=== PATIENT | female | born 1970 | race Caucasian/White ===

== ENCOUNTER 2019-12-16 11:52 | Observation (INO) | payer BC ==
--- OUTSIDE RECORDS SUMMARY | 2019-12-16 11:54 | XMS REPORT | Summary of Care ---
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 [facility] Malissa Palm MD [id number] [place] [address] Mild dietary indigestion (Primary Dx); Professional Office 2, Adc Lab Gastroesophageal reflux disease, esophag itis presence not specified Building Phlebotomy Lab Professional Office Building [address] [facility] , [address] [place] [address] Allergies No Known Allergiesdocumented as of this encounter (statuses as of 11/02/2019) Medications Medication Sig Dispensed Refills Start Date End Date Status VICTOZA 3-JOSE 0.6 inject 1.8 mg 0 09/22/2015 Active mg/0.1 mL (18 mg/3 mL) under the skin injection daily. temazepam (RESTORIL) 15 Take 15 mg by 0 09/20/2015 Active mg capsule mouth at bedtime. atorvastatin (LIPITOR) Take 10 mg by 0 09/14/2015 Active 10 mg tablet mouth every evening. paroxetine (PAXIL) 40 Take 40 mg by 0 09/11/2015 Active mg tablet mouth daily. DEXILANT 60 mg capsule Take 60 mg by 0 11/06/2015 Active mouth daily. montelukast 10 mg Take 10 mg by 0 Active tablet mouth daily. insulin lispro, human, inject under the 0 Active (HUMALOG) 100 unit/mL skin 3 (three) injectionIndications: times daily Via insulin pump before meals. Indications: Via insulin pump estradiol 1 mg tablet Take 1 mg by 0 Active mouth daily. empagliflozin Take 10 mg by 0 Ac tive (JARDIANCE) 10 mg Tab mouth daily. ranitidine (ZANTAC 75) Take 75 mg by 0 Active 75 mg tablet mouth daily. diazePAM (VALIUM) 5 mg Take 1 tablet by 8 tablet 0 06/25/2018 Active tabletIndications: mouth 3 (three) Torticollis times daily as needed for Muscle Spasms. documented as of this encounter (statuses as of 11/02/2019) Active Problems Problem Noted Date Left ankle pain 10/15/2015 Right knee pain 10/15/2015 documented as of this encounter (statuses as of 11/02/2019) Social History Tobacco Use Types Packs/Day Years Used Date Former Smoker Quit: 10/05/19 03 Smokeless Tobacco: Never Used Alcohol Use Drinks/Week oz/Week Comments Yes 0 Standard drinks or equivalent 0.0 Social Drinker Sex Assigned at Date Recorded Not on file COVID-19 Exposure Response Date Recorded In the last month, have you been in contact with No / Unsure 11/02/2019 3:27 PM CDT someone who was confirmed or suspected to have Coronavirus / COVID-19? documented as of this encounter Last Filed Vital Signs Not on filedocumented in this encounter Nursing Notes Dilia Carmona - 11/02/2019 4:15 PM CDT Venipuncture collection performed by clean technique on the right anticubitus. Total of 1 attempts were made. Slight pressure and a bandage/dressing were applied to the site(s). The patient experiencedno complications. The following specimens were processed according to instructions and sent to [facility] laboratories per lab order on 11/02/19: LT BLUE SST 3 RED LAV 1 PPT DK GREEN (LiHep) DK GREEN (SodH) HANDY DK BLUE (K2) DK BLUE (S) ACD Blood Culture NIPT/NTD documented in this encounter Plan of Treatment Name Type Priority Associated Diagnoses Order S chedule CBC WITH DIFF LAB Routine Mild dietary ind igestion Expected: 11/02/2019, Gastroesophageal reflux Expi res: 11/01/2020 disease, esophagitis presence not specified HEPATIC FUNCTION PANEL LAB Routine Mild diet campos indigestion Expected: 11/02/2019, ([id number]) (ALB,T.PRO,BILI Gastroesophageal reflux Expires: 11/01/2020 T,BU/BC,ALT,AST,ALK disease, esophagitis PHOS) presence not specified AMYLASE LAB Routine Mild dietary ind igestion Expected: 11/02/2019, Gastroesophageal reflux Expi res: 11/01/2020 disease, esophagitis presence not specified LIPASE LAB Routine Mild dietary ind igestion Expected: 11/02/2019, Gastroesophageal reflux Expi res: 11/01/2020 disease, esophagitis presence not specified BASIC METABOLIC PANEL LAB Routine Mild dieta ry indigestion Expected: 11/02/2019, (NA, K, CL, CO2, Gastroesophageal reflux Expires: 11/01/2020 GLUCOSE, BUN, disease, esophagitis CREATININE, CA) presence not specified C-REACTIVE PROTEIN LAB Routine Mild dietary indigestion Expected: 11/02/2019, Gastroesophageal reflux Expi res: 11/01/2020 disease, esophagitis presence not specified CELIAC REFLEXIVE PANEL LAB Routine Mild diet campos indigestion Expected: 11/02/2019, Gastroesophageal reflux Expi res: 11/01/2020 disease, esophagitis presence not specified Health Maintenance Due Date Last Done Comments Depression Screening 1982 DTaP,Tdap,and Td Vaccines (1 - 1989 Tdap) PAP SMEAR 1991 Breast Cancer Screening 2010 (MAMMOGRAM) INFLUENZA VACCINE (#1) 2019 Colorectal Cancer Screening 2020 PNEUMOCOCCAL 0-64 YEARS COMBINED Aged Out No longer eligible based on SERIES patient's age to complete this topic documented as of this encounter Implants Implanted Type Area Account Development Representative Device Shelf Model / Identifier Expiration Date Ser ial / Lot Acry Sof Iq Toric Lens LENS Right: David 020 [id number] / Implanted: Qty: 1 on 01/05/2017 by Cr Ohara MD at [facility] 1 [id number] / [id number] Acry Sof Iq Toric Lens LENS Left: Eye David 022 [id number] / Implanted: Qty: 1 on 01/28/2017 by Cr Ohara MD at [facility] 1 [id number] / [id number] documented as of this encounter Results Not on filedocumented in this encounter Visit Diagnoses Diagnosis Mild dietary indigestion - Primary Dyspepsia and other specified disorders of function of stomach Gastroesophageal reflux disease, esophag itis presence not specified documented in this encounter Insurance Payer Benefit Plan Subscriber ID Effective Dates Phone Address Type / Group [facility] [id number] 2016-[place] [phone] [address] PPO/POS [place] SELECT t [id number] [place] [address] documented as of this encounter
--- OUTSIDE RECORDS SUMMARY | 2019-12-16 11:54 | XMS REPORT | Summary of Care ---
:1970 Author Organization [facility] Address [address] [place] [address] Care Team Providers Name Role Phone Keven Santana Primary Care Provider Reason for Visit Reason Comments LAB WORK Auth/Cert Status Reason Specialty Diagnoses / Referred By Referred To Procedures Contact Contact Clinical Medical Diagnoses PRE OP [facility] Lab Laboratory Procedures COVID-19 (ID NOW RAPID TESTING) COVID-19 (ID NOW RAPID TESTING) [[id number]] [address] [place] [address] Encounter Details Date Type Department Care Team Description 11/28/2019 Laboratory Only [facility] Ailyn Palm MD [id number] [place] [address] Pre-operative Phlebotomy Only, [facility] Test clearance (Primary Lab-[place] Dx) [address] [place] [address] Allergies No Known Allergiesdocumented as of this encounter (statuses as of 11/28/2019) Medications Medication Sig Dispensed Refills Start Date End Date Status VICTOZA 3-JOSE 0.6 inject 1.8 mg 0 09/22/2015 Active mg/0.1 mL (18 mg/3 mL) under the skin injection daily. temazepam (RESTORIL) 15 Take 30 mg by 0 09/20/2015 Active mg capsule [...] times daily Via insulin pump before meals. Average 20 units a day on insulin pump Indications: Via insulin pump estradiol 1 mg [...] times daily as needed for Muscle Spasms. esomeprazole (NEXIUM) Take 20 mg by 0 Active 20 mg capsule mouth daily before a meal. documented as of this encounter (statuses as of 11/28/2019) Active Problems Problem Noted Date Left ankle pain 10/15/2015 Right knee pain 10/15/2015 documented as of this encounter (statuses as of 11/28/2019) Social History Tobacco Use Types Packs/Day Years Used Date Former Smoker Quit: 10/05/19 03 Smokeless Tobacco: Never Used Alcohol Use Drinks/Week oz/Week Comments Yes 0 Standard drinks or equivalent 0.0 Social Drinker Sex Assigned at Date Recorded Not on file COVID-19 Exposure Response Date Recorded In the last month, have you been in contact with No / Unsure 11/28/2019 2:11 PM CDT someone who was confirmed or suspected to have Coronavirus / COVID-19? documented as of this encounter Last Filed Vital Signs Not on filedocumented in this encounter Plan of Treatment Date Type Specialty Care Team Description 11/30/2019 Hospital Encounter Surgery Lara Palm MD [id number] [place] [address] 11/30/2019 Anesthesia Event Surgery Keven Moyer, [place] [address] [address] 11/30/2019 Surgery Surgery Charafeddine, ESOPHAGOGASTRO DUODENOSCOPY aLra Collazo MD [id number] [place] [address] Name Type Priority Associated Diagnoses Date/Ti me COVID-19 (ID NOW RAPID LAB Routine Pre-operative rosmery jermaine 11/28/2019 3:30 PM CDT TESTING) Name Type Priority Associated Diagnoses Order S chedule COVID-19 (ID NOW RAPID LAB Routine Pre-operative rosmery jermaine Expected: 11/28/2019, TESTING) Expires: 2020 Health Maintenance Due Date Last Done Comments Depression Screening 1982 DTaP,Tdap,and Td Vaccines (1 - 1989 Tdap) PAP SMEAR 1991 Breast Cancer Screening 2010 (MAMMOGRAM) INFLUENZA VACCINE (#1) 2019 Colorectal Cancer Screening 2020 PNEUMOCOCCAL 0-64 YEARS COMBINED Aged Out No longer eligible based on SERIES patient's age to complete this topic documented as of this encounter Implants Implanted Type Area Hospice Social Worker Device Shelf Model / Identifier Expiration Date Ser ial / Lot Acry Sof Iq Toric Lens LENS Right: David 020 [id number] / Implanted: Qty: 1 on 01/05/2017 by Cr Ohara MD at [facility] 1 [id number] / [id number] Acry Sof Iq Toric Lens LENS Left: Eye David 022 [id number] / Implanted: Qty: 1 on 01/28/2017 by Cr Ohara MD at [facility] 1 [id number] / [id number] documented as of this encounter Results Not on filedocumented in this encounter Visit Diagnoses Diagnosis Pre-operative clearance - Primary Preoperative examination, unspecified Dysphagia, oropharyngeal phase documented in this encounter Additional Health Concerns Infection Onset Date Last Indicated Resolved Time COVID-19 Rule Out 11/28/2019 11/28/2019 documented as of this encounter Insurance Payer Benefit Plan Subscriber ID Effective Dates Phone Address Type / Group [facility] [id number] 2016-[place] [phone] [address] PPO/POS [place] SELECT t 7 [id number] [place] [address] documented as of this encounter
--- OUTSIDE RECORDS SUMMARY | 2019-12-16 11:54 | XMS REPORT | Summary of Care ---
:1970 Author Organization [facility] Address [address] [place] [address] Care Team Providers Name Role Phone Julyhakeem Keven Bruno Primary Care Provider Encounter Details Date Type Department Care Team Description 11/02/2019 Orders Only [facility] Doctor Unassigned, No [address] [facility] [place] [address] [address] [place] [address] Allergies No Known Allergiesdocumented as of this encounter (statuses as of 11/07/2019) Medications Medication Sig Dispensed Refills Start Date [...] as of this encounter (statuses as of 11/07/2019) Active Problems Problem Noted Date Left ankle pain 10/15/2015 Right knee pain 10/15/2015 documented as of this encounter (statuses as of 11/07/2019) Social History Tobacco Use Types Packs/Day Years [...] filedocumented in this encounter Plan of Treatment Health Maintenance Due Date Last Done Comments Depression Screening 1982 DTaP,Tdap,and Td Vaccines (1 - 1989 Tdap) PAP SMEAR 1991 Breast Cancer Screening 2010 (MAMMOGRAM) INFLUENZA VACCINE (#1) 2019 Colorectal Cancer Screening 2020 PNEUMOCOCCAL 0-64 YEARS COMBINED Aged Out No longer eligible based on SERIES patient's age to complete this topic documented as of this encounter Implants Implanted Type Area Cloth Carrier Device Shelf Model / Identifier Expiration Date Ser ial / Lot Acry Sof Iq Toric Lens LENS Right: David 020 [id number] / Implanted: Qty: 1 on 01/05/2017 by Cr Ohara MD at [facility] 1 [id number] / [id number] Acry Sof Iq Toric Lens LENS Left: Eye David 022 [id number] / Implanted: Qty: 1 on 01/28/2017 by Cr Ohara MD at [facility] 1 [id number] / [id number] documented as of this encounter Procedures Procedure Name Priority Date/Time Associated Diagnosis Comme nts PHYSICIAN ORDERS Routine 11/02/2019 12:01 AM CDT documented in this encounter Results Not on filedocumented in this encounter Insurance Payer Benefit Plan / Subscriber ID Effective Phone Address T e Group Dates [facility] [id number] 2016-Pr PPO/PO [facility] [id number] 2016-Pres [phone] [address] PPO/POS [employer] ent [id number] [place] [address] documented as of this encounter
--- OUTSIDE RECORDS SUMMARY | 2019-12-16 11:54 | XMS REPORT | Continuity of Care Document ---
:1970 Author Organization [facility] t Address [address] [place] [address] Care Team Providers Name Role Phone Lara Palm MD Attending Clinician Doctor Unassigned, Name Attending Clinician Unavailable Only, Test Attending Clinician Unavailable 2, Lab Attending Clinician Unavailable Vale Palm MD Admitting Clinician Payers Payer Name Policy Type Policy Number Effective Date Expiration Date S ource Problems This patient has no known problems. Allergies, Adverse Reactions, Alerts Allergy Allergy Status Severity Reaction(s) Onset Inactive Treating Comm ents Source Name Type Date Date Clinician nick DA Active RI [facility] 03-01 [place] 00:00: Orthope 00 dic Hosp[facility] l Medications This patient has no known medications. Procedures This patient has no known procedures. Encounters Start End Encounter Admission Attending Care Care Encounter Source Date/Time Date/Time Type Type Clinicians Facility Department ID 2019-11-30 2019-11-30 [facility] [id number] 07:16:00 08:55:00 Encounter Lara diamond [id number] [place] [id number] Surgical [id number] [place] 07 2019-11-30 2019-11-30 Orders Doctor CIERRA [id number] 00:00:00 00:00:00 Only Unassigned, JUNAITA [id number] [place] [facility] [id number] 2019-11-28 2019-11-28 Laboratory Only, [facility] [place] [id number] 15:23:27 15:38:27 Only Test Rachana [id number] [place] [id number] [place] [id number] 2019-11-02 2019-11-02 Engraving Plate Maker 2, [facility] [id number] 15:28:24 15:43:24 Visit Rachana [id number] [place] [id number] [facility] [id number] [address] 2019-11-02 2019-11-02 Orders Doctor CIERRA [id number] 00:00:00 00:00:00 Only Unassigned, JUANITA [id number] [place] [facility] [id number] Results Test Description Test Time Test Comments Results Result Comments Source GLUBED 2018-10-25 09:52:00 Test Item Value Reference Range Interpretation Comme nts GLUBED (test code = GLUBED) 171 mg/dL 60-125 H [id number] 09:52:00 Test Item Value Reference Range Interpretation Comments GLUBED (test code = GLUBED) 94 mg/dL 60-125 N [id number] 08:35:00 Test Item Value Reference Range Interpretation Comments GLUBED (test code = GLUBED) 107 mg/dL 60-125 N [id number] 07:50:00 Test Item Value Reference Range Interpretation Comments GLUBED (test code = GLUBED) 116 mg/dL 60-125 N BASIC METABOLIC [id number] 17:41:00 Test Item Value Reference Range Interpretation Comments SODIUM (test code = 143 mmol/L 136-145 N NA) POTASSIUM (test code = 3.8 mmol/L 3.5-5.1 N K) CHLORIDE (test code = 105.0 mmol/L 98-107 N CL) CARBON DIOXIDE (test 28.8 mmol/L 21-32 N code = CO2) GLUCOSE (test code = 82 mg/dL 70-110 N GLU) BLOOD UREA NITROGEN 9 mg/dL 7-18 N (test code = BUN) GLOMERULAR FILTRATION 141.4 >60 Unit o f measure: RATE (test code = GFR) mL/mi n/1.73 [id number] Range:Healthy Adults >90 mL/min/1.73 m2 For Chronic Kidney Disease: St age II Mild Decrease in GFR 60-90 St age III Moderate Decrease in GFR 30-59 Stage IV Severe Decre ase in GFR 15- 29 Stage V Kidney Failure <15 CREATININE (test code 0.47 mg/dL 0.55-1.30 L = CREAT) CALCIUM (test code = 9.0 mg/dL 8.2-10.1 N CA) HGB [id number] 17:16:00 Test Item Value Reference Range Interpretation Comments HEMOGLOBIN (test code = HGB) 13.3 g/dL 12-16 N HEMATOCRIT (test code = HCT) 39.6 % 37-47 N
--- OUTSIDE RECORDS SUMMARY | 2019-12-16 11:55 | XMS REPORT | Summary of Care ---
:1970 Author Organization [facility] - Health Address [address] [place] [id number] Care Team Providers Name Role Phone Keven Santana Primary Care Provider Reason for Visit Auth/Cert Status Reason Specialty Diagnoses / Procedures Referred By Laxmi rapp To Contact Contact Surgery Diagnoses Dysphagia, oropharyngeal phase Functional dyspepsia Dysphagia, oropharyngeal phase [R13.12] K30 (ICD-10-CM) - Functional dyspepsia Adc Procedures [facility] CODING HELP DC ESOPHAGOGASTRODUODENOSCOPY TRANSORAL DIAGNOSTIC ESOPHAGOGASTRODUODENOSCOPY 26714 - DC ESOPHAGOGASTRODUODENOSCOPY TRANSORAL DIAGNOSTIC Pre/Pacu/Post [address] [place] [id number] Encounter Details Date Type Department Care Team Description 11/30/2019 Hospital Encounter [facility] Lara Palm MD [address] [place] [address] Dr duncan [address] [place] [address] [id number] [place] [phone] Allergies No Known Allergiesdocumented as of this encounter (statuses as of 11/30/2019) Medications Medication Sig Dispensed Refills Start Date [...] as of this encounter (statuses as of 11/30/2019) Active Problems Problem Noted Date Left ankle pain 10/15/2015 Right knee pain 10/15/2015 documented as of this encounter (statuses as of 11/30/2019) Social History Tobacco Use Types Packs/Day Years [...] of this encounter Last Filed Vital Signs Vital Sign Reading Time Taken Comments Blood Pressure 104/69 11/30/2019 8:55 AM CDT Pulse 72 11/30/2019 8:55 AM CDT Temperature 36.5 C (97.7 F) 11/30/2019 7:25 AM CDT Respiratory Rate 18 11/30/2019 8:55 AM CDT Oxygen Saturation 98% 11/30/2019 8:55 AM CDT Inhaled Oxygen Concentration - - Weight 79.4 kg (175 lb) 11/28/2019 2:00 PM CDT Height 160 cm (5' 3") 11/28/2019 2:00 PM CDT Body Mass Index 31 11/28/2019 2:00 PM CDT documented in this encounter Discharge Instructions Bakari Marte RN - 11/30/2019 General Discharge Instructions Procedure: EGD The medication you were given for the procedure may make you dizzy or sleepy. Do not drive, operate machinery or walk for long distances in the heat for at least 12 hours. Many patients feel very tired following these procedures and need to rest for several hours. The procedure may cause mild discomfort in the abdominal area, but the pain should disappear within several hours. Notify your physician if you have pain or tenderness for more than six hours or ifyou notice an increase in abdominal size. Advance your diet: You may resume a normal diet but first start with a light meal that is not greasy or fatty. If you are passing gas and this light meal does not bother your stomach you may continue with a normal diet for the next meal. Resume your home medications. The arm vein where medication was given may be tender. Apply a warm compress. If the pain persists for more than 12 hours, call your doctor. You will probably belch or pass gas during the first few hours after the exam. Light exercise like walking may help relieve bloating or gas pains. Avoid extreme heat when you exercise. If you had a polypectomy or a biopsy, you may notice a small amount of red blood coming from the rectum. You may also have a small amount of blood in your first bowel movement. If bleeding increases, call your doctor. If you had a polypectomy, do not take non-steroidal antiinflammatory medications containing Ibuprofen (such as Nuprin, Motrin, Advil) or medications with Aspirin (such as Bufferin) for 7 days, unless your doctor tells you otherwise. For minor pains, you may use medications that do not contain aspirin or ibuprofen (such as Tylenol or Datril). Special Instructions: Although these symptoms may not be related to your procedure, call your doctor immediately if you- Become short of breath Get dizzy Have a fever Experience chest pain Have rapid or irregular heart rate If you had biopsies your physician will call you with the results in approximately one week and advise you of when to follow-up. Contact Information Dr Palm [phone] After Hours (Non-Urgent Concerns): [facility] Access Line [phone] High Fiber Diet (25-30 grams/ day) FRUIT AMOUNT FIBER (gms) VEGETABLES AMOUNT FIBER (gms) Apple with skin 1 medium 5.00 Avocado 1 medium 11.84 Apricot 3 medium 0.98 Beets, cooked 1 cup 2.85 Apricots, dried 5 pieces 2.89 Beet greens 1 cup 4.20 Banana 1 medium 3.92 Bok [place], cooked 1 cup 2.76 Blueberries 1 cup 4.18 Broccoli, cooked 1 cup 4.5 Cantaloupe, cubes 1 cup 1.28 Brussel Sprouts 1 cup 2.84 Figs, dried 2 medium 3.74 Cabbage, cooked 1 cup 4.20 Grapefruit medium 6.12 Carrot 1 medium 2.00 Richardson, navel 1 medium 3.40 Carrots, cooked 1 cup 5.22 [place] 1 medium 2.00 Cauliflower, cooked 1 cup 3.43 Peaches, dried 3 pieces 3.18 Clif Slaw 1 cup 4.00 Pear 1 medium 5.08 [place], sweet 1 cup 4.66 [place] 1 medium 1.00 Green beans 1cup 3.95 Raisins 1.5 oz box 1.60 Celery 1 stalk 1.02 Raspberries 1 cup 8.34 Kale, cooked 1 cup 7.20 Strawberries 1 cup 3.98 Onions, raw 1 cup 2.88 Peas, cooked 1 cup 8.84 CEREAL, GRAINS, PASTA AMOUNT FIBER (gms) Peppers, cooked 1 cup 2.62 Bran Cereal 1 cup 19.94 Pop corn, air popped 3 cups 3.60 Bread, whole wheat 1 slice 2.00 Potato, baked w/ skin 1 medium 4.80 Oats, rolled dry 1 cup 12.00 Spinach, cooked 1 cup 4.32 Pasta, whole wheat 1 cup 6.34 Summer squash 1 cup 2.52 Rice, dry brown 1 cup 7.98 Sweet Potato, cooked 1 cup 5.94 Swazi Chard, cooked 1 cup 3.68 BEANS, NUTS, SEEDS AMOUNT FIBER (gms) Tomato 1 medium 1.00 Almonds 1 oz 4.22 Winter Squash 1 cup 5.74 Black Beans, cooked 1 cup 14.92 Zucchini, cooked 1 cup 2.63 Cashews 1 oz 1.00 Flax Seeds 3 tbs 6.97 Garbanzo beans, cooked 1 cup 5.80 Kidney beans, cooked 1 cup 13.33 Lentils, red cooked 1 cup 15.64 Urrutia beans, cooked 1 cup 13.16 Peanuts 1 oz 2.30 Pistachio nuts 1 oz 3.10 Pumpkin seeds cup 4.12 Soybeans, cooked 1 cup 7.62 [place] seeds cup 3.00 Walnuts 1 oz 3.08 General Surgical Discharge Instructions: ? The medication that was used will be acting in your system for the next 24 hours, so you might feel a little drowsy, with impaired judgment and/ or motor function. This feeling should wear off. Because the medication is still in your system for the next 24 hours you SHOULD NOT: o Drive a car, operate machinery or power tools. o Drink any alcoholic beverages. o Make any important decisions or sign any legal documents. ? You should rest the remainder of the day and not engage in any physical activity. YOU ARE RESPONSIBLE FOR HAVING SOMEONE AT HOME WITH YOU DURING THE AFTERNOON AND NIGHT IMMEDIATELY FOLLOWING YOUR SURGERY. Patients should cough and deep breathe every 2-4 hours while awake to avoid respiratory complications. ? Because the medications used could produce some residual nausea and vomiting after you go home, you should eat lightly today, starting with clear liquids (broth, soft drinks, apple juice, jello) and toast or crackers, progressing to your normal diet as tolerated. If you get sick, wait a couple of hours and then begin to eat. After 24 hours the nausea should be gone. If your nausea persists, callyour physician. ? You may experience some pain and your physician will advise you on what to take for discomfort. This should be taken as directed. If the pain is not relieved, contact your physician. You may also have a sore throat from the airway/ breathing tube that was in place. You may use lozenges, throat spray (Chloraseptic), or warm salt water gargles for symptomatic relief. ? If you are unable to urinate within five hours after your procedure, call your physician. ? The type of surgery performed will determine how much bleeding (if any) to expect. Normally, somespotting might occur. If your dressing pad become saturated, notify your physician. Elevate surgical site, if applicable, to reduce swelling and pain. ? Preventing a surgical site infection: o Dont smoke. It is best to quit at least 30 days before surgery, but quitting after surgery is also helpful. o If you are a diabetic, keep your blood sugar well controlled. WASH YOUR HANDS. o Keep your wound clean and remember to wash your hands before and after contact with the area. o Call your doctor if you have signs of infection: ? increased tenderness at the surgical site ? red streaks or increased redness of the area ? bad-smelling discharge from the incision ? fever of 101 or higher TOBACCO AVOIDANCE Exposure to tobacco either from smoking or from second hand (environmental)smoke or smokeless tobacco (snuff) is damaging to your health. This information is to encourage everyone to avoid tobacco exposure. It is recommended that you: If you smoke or use smokeless tobacco, we encourage you to quit. If you have already quit smoking, continue your good work! If you do not smoke or use smokeless tobacco, do not start. Avoid secondhand smoke. Additional Resources: You may want to contact these organizations for further information on smoking and how to quit- [place] [employer] - http://www.lungusa.org/stop-smoking/ [place] [employer] - http://www.cancer.org/Healthy/StayAwayfromTobacco/index [place] [employer] - http://www.heart.org/HEARTORG/GettingHealthy/QuitSmoking/Quit-Smoking _[facility]_001085_SubHomePage.jsp documented in this encounter Plan of Treatment Name Type Priority Associated Diagnoses Order S chedule SURGICAL PATHOLOGY EXAM LAB Routine Rele ase Upon Ordering for 1 Occurrences s tarting 11/30/2019 Health Maintenance Due Date Last Done Comments DTaP,Tdap,and Td Vaccines (1 - 1989 Tdap) PAP SMEAR 1991 Breast Cancer Screening 2010 (MAMMOGRAM) INFLUENZA VACCINE (#1) 2019 Colorectal Cancer Screening 2020 Depression Screening 11/29/2020 11/30/2019 PNEUMOCOCCAL 0-64 YEARS COMBINED Aged Out No longer eligible based on SERIES patient's age to complete this topic documented as of this encounter Implants Implanted Type Area Personal Trainer Device Shelf Model / Identifier Expiration Date Ser ial / Lot Acry Sof Iq Toric Lens LENS Right: David 020 [id number] / Implanted: Qty: 1 on 01/05/2017 by Cr Ohara MD at [facility] 1 [id number] / [id number] Acry Sof Iq Toric Lens LENS Left: Eye David 022 [id number] / Implanted: Qty: 1 on 01/28/2017 by Cr Ohara MD at [facility] 1 [id number] / [id number] documented as of this encounter Procedures Procedure Name Priority Date/Time Associated Comments Diagnosis POCT GLUCOSE(AGE Routine 11/30/2019 7:50 Results for this >30DAYS) AM CDT procedure are i n the results section. EGD (ENDO) Routine 11/30/2019 7:01 AM CDT CONSENT/REFUSAL FOR Routine 11/27/2019 3:31 DIAGNOSIS AND TREATMENT PM CDT ASSIGNMENT OF BENEFITS Routine 11/27/2019 3:30 PM CDT [facility] PATIENT FINANCIAL Routine 11/27/2019 3:27 POLICY PM CDT NO SHOW OR MISSED Routine 11/27/2019 3:27 APPOINTMENT POLICY PM CDT ACKNOWLEDGEMENT NOTICE OF PRIVACY Routine 11/27/2019 3:26 PRACTICES PM CDT CONSENT/REFUSAL FOR Routine 11/27/2019 3:26 DIAGNOSIS AND TREATMENT PM CDT ASSIGNMENT OF BENEFITS Routine 11/27/2019 3:25 PM CDT DSU PRE-OP Routine 11/20/2019 12:01 AM CDT documented in this encounter Results POCT Glucose (11/30/2019 7:50 AM CDT) Pathologist Sig nature POCT Glu (age>30days) 124 (A) 70 - 110 mg/dL Specimen Blood - CAPILLARY documented in this encounter Visit Diagnoses Diagnosis Dyspepsia - Primary Dyspepsia and other specified disorders of function of stomach documented in this encounter Administered Medications Medication Order MAR Action Action Date Dose Rate Site lactated ringers IV infusion 1,000 mL at 75 mL/hr, 1,000 mL, IV Infusion, CONTINUOUS, Starti ng Sarah 11/30/19 at 0845, Until Discontinued, Routine, PACU simethicone (GAS RELIEF (SIMETHICONE)) 40 Given 11/30/2019 7:39 AM CDT 80 mg mg/0.6 mL drops PRN, Starting Sarah 11/30/19 at 0739, Until Discontinued, Routine, Intra-op water for irrigation irrigation solution Given 11/30/2019 7:39 AM CDT 1,000 mL PRN, Starting Sarah 11/30/19 at 0739, Until Discontinued, Routine, Intra-op Medication Order MAR Action Action Date Dose Rate Site lactated ringers IV infusion New Bag 11/30/2019 7:54 AM CDT 1,000 mL 42 mL/hr 1,000 mL at 42 mL/hr, 1,000 mL, IV Infusion, ONCE, 1 dose, Sarah 11/30/19 at 0800, Routine, DSU Pre-op documented in this encounter Insurance Payer Benefit Plan Subscriber ID Effective Dates Phone Address Type / Group [facility] [id number] 2016-[place] [phone] [address] PPO/POS [place] [employer] t [id number] [place] [address] documented as of this encounter
--- OUTSIDE RECORDS SUMMARY | 2019-12-16 11:55 | XMS REPORT | Summary of Care ---
:[address] [facility] - Health Address [address] [place] [address] Care Team Providers Name Role Phone Julyhakeem Keven Bruno Primary Care Provider Encounter Details Date Type Department Care Team Description 11/30/[address] [facility] Doctor Unassigned, No [address] [facility] [place] [address] [address] [place] [address] Allergies No Known Allergiesdocumented as of this [...] of this encounter Implants Implanted Type Area Peoplesoft Consultant Device Shelf Model / Identifier Expiration Date Ser ial / Lot Acry Sof Iq Toric Lens LENS Right: David 020 [id number] / Implanted: Qty: 1 on 01/05/2017 by Cr Ohara MD at [facility] 1 [id number] / [id number] Acry Sof Iq Toric Lens LENS Left: Eye David 022 [id number] / Implanted: Qty: 1 on 01/28/2017 by Cr Ohara MD at [facility] 1 [id number] / [id number] documented as of this encounter Procedures Procedure Name Priority Date/Time Associated Diagnosis Comme nts DAY SURGERY - ADC Routine 11/30/2019 12:01 AM CDT documented in this encounter Results Not on filedocumented in this encounter Insurance Payer Benefit Plan Subscriber ID Effective Dates Phone Address Type / Group [facility] [id number] 2016-[place] [phone] [address] PPO/POS [place] [employer] t [id number] [place] [address] documented as of this encounter
[2019-12-16] MEDS ORDERED: PROMETHAZINE INJ 25 MG/ML AMP ONE ×3 (12:27→21:47)
[2019-12-16] MEDS ORDERED: NA CHLORIDE 0.9% 2,000 ML ONE (12:28)
[2019-12-16] MEDS ORDERED: FAMOTIDINE 20 MG/2 ML VIAL IV ONE (12:50)
[2019-12-16 13:00] LABS: Absolute Lymphocytes (CBC) 1.6 K/uL (0.7-4.9); Basophils % 0.8 % (0-1.3); Hematocrit 37.5 % (36.0-45.0); Lymphocytes % 17.3 % (15.3-44.8); MPV 8.5 fL (7.6-11.3); RBC Red Blood Cell Count 4.04 M/uL (3.86-4.86)
--- NOTE | 2019-12-16 13:19 | RAD REPORT ---
EXAM DESCRIPTION: Riddhi Single View12/16/2019 12:57 pm CLINICAL HISTORY: cough COMPARISON: 2017 FINDINGS: The lungs appear clear of acute infiltrate. The heart is normal size IMPRESSION: No acute abnormalities displayed
[2019-12-16 13:25] LABS: ALT/SGPT 15 U/L (12-78); AST/SGOT 15 U/L (15-37); Albumin 3.7 g/dL (3.4-5.0); Alkaline Phosphatase 129 U/L (45-117); BUN Blood Urea Nitrogen 15 mg/dL (7-18); Bicarbonate 16 mmol/L (21-32); Bilirubin Direct 0.1 mg/dL (0-0.2); Bilirubin Total 0.4 mg/dL (0.2-1.0); Glucose Level 353 mg/dL (74-106); Magnesium 2.2 mg/dL (1.8-2.4); NT PRO-BNP 87 pg/mL (<125); Potassium 4.2 mmol/L (3.5-5.1); Protein, Total 7.2 g/dL (6.4-8.2); Sodium Level 136 mmol/L (136-145); Troponin (Emerg Dept Use Only) < 0.02 ng/mL (0.0-0.045)
--- NOTE | 2019-12-16 13:38 | EDPHYS ---
Physician Documentation [facility] Name: Marisol Hull Age: 49 yrs Sex: Female : 1970 Arrival Date: 12/16/2019 Time: 12:01 Bed 16 Private MD: ED Physician Geovani Brunner HPI: 12/15 12:56 This 49 yrs old Female presents to ER via EMS with complaints of High Blood nancy Sugar. 12:56 The patient or guardian reports generalized weakness, hyperglycemia. Onset: The nancy symptoms/episode began/occurred just prior to arrival, this morning. Associated signs and symptoms: Pertinent positives: nausea, vomiting. Current symptoms: In the emergency department the patient's symptoms have improved, mildly. The patient has experienced similar episodes in the past, several times. 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 - Family history:: not pertinent. - Social history:: Smoking status: Patient/guardian denies using tobacco, but has a distant history of tobacco abuse. ROS: 12:56 Constitutional: Negative for fever, chills, and weight loss, Eyes: Negative for injury, nancy pain, redness, and discharge, ENT: Negative for injury, pain, and discharge, Neck: Negative for injury, pain, and swelling, Cardiovascular: Negative for chest pain, palpitations, and edema, Respiratory: Negative for shortness of breath, cough, wheezing, and pleuritic chest pain, Back: Negative for injury and pain, : Negative for injury, bleeding, discharge, and swelling, MS/Extremity: Negative for injury and deformity, Skin: Negative for injury, rash, and discoloration, Neuro: Negative for headache, weakness, numbness, tingling, and seizure, Psych: Negative for depression, anxiety, suicide ideation, homicidal ideation, and hallucinations, Allergy/Immunology: Negative for hives, rash, and allergies, Endocrine: Negative for neck swelling, polydipsia, polyuria, polyphagia, and marked weight changes, Hematologic/Lymphatic: Negative for swollen nodes, abnormal bleeding, and unusual bruising. 12:56 Abdomen/GI: Positive for abdominal pain, nausea, vomiting, abdominal cramps. Exam: 12:56 Constitutional: This is a well developed, well nourished patient who is awake, alert, nancy and in no acute distress. Head/Face: Normocephalic, atraumatic. Eyes: Pupils equal round and reactive to light, extra-ocular motions intact. Lids and lashes normal. Conjunctiva and sclera are non-icteric and not injected. Cornea within normal limits. Periorbital areas with no swelling, redness, or edema. ENT: Nares patent. No nasal discharge, no septal abnormalities noted. Tympanic membranes are normal and external auditory canals are clear. Oropharynx with no redness, swelling, or masses, exudates, or evidence of obstruction, uvula midline. Mucous membranes moist. Neck: Trachea midline, no thyromegaly or masses palpated, and no cervical lymphadenopathy. Supple, full range of motion without nuchal rigidity, or vertebral point tenderness. No Meningismus. Chest/axilla: Normal chest wall appearance and motion. Nontender with no deformity. No lesions are appreciated. Respiratory: Lungs have equal breath sounds bilaterally, clear to auscultation and percussion. No rales, rhonchi or wheezes noted. No increased work of breathing, no retractions or nasal flaring. Back: No spinal tenderness. No costovertebral tenderness. Full range of motion. Skin: Warm, dry with normal turgor. Normal color with no rashes, no lesions, and no evidence of cellulitis. MS/ Extremity: Pulses equal, no cyanosis. Neurovascular intact. Full, normal range of motion. Neuro: Awake and alert, GCS 15, oriented to person, place, time, and situation. Cranial nerves II-XII grossly intact. Motor strength 5/5 in all extremities. Sensory grossly intact. Cerebellar exam normal. Normal gait. Psych: Awake, alert, with orientation to person, place and time. Behavior, mood, and affect are within normal limits. 12:56 Cardiovascular: Rate: tachycardic, Rhythm: regular, Pulses: Pulses are 4+ in bilateral radial, brachial, femoral, popliteal, posterior tibial and and dorsalis pedis arteries.. Heart sounds: normal, normal S1and S2, no S3 or S4, no murmur, no rub, no gallop, murmur, not appreciated, Edema: is not appreciated, JVD: is not appreciated. 12:56 Abdomen/GI: Inspection: abdomen appears normal, Bowel sounds: normal, Palpation: mild abdominal tenderness, in all quadrants, Liver: no appreciated palpable abnormalities, Hernia: not appreciated. 13:01 ECG was reviewed by the Attending Physician. [facility] [place] Vital Signs: 12:02 Pulse 108; Resp 19; Temp 97.6; Pulse Ox 99% ; ae4 12:11 BP 121 / 71; Pulse 117; Resp 19; Pulse Ox 97% on R/A; Weight 77.11 kg (R); ae4 13:12 BP 123 / 68; Pulse 112; Resp 19; Pulse Ox 97% on R/A; ae4 14:19 BP 123 / 70; Pulse 110; Resp 19; Pulse Ox 99% on R/A; ae4 15:01 BP 118 / 58; Pulse 105; Resp 16; Pulse Ox 99% on R/A; aa5 15:48 BP 125 / 67; Pulse 109; Resp 18 S; Pulse Ox 98% on R/A; aa5 Procedures: 14:04 Peripheral line: by aseptic technique a peripheral line was placed in the right [facility] external jugular vein. MDM: 12:02 Patient medically screened. [facility] 12:58 Differential diagnosis: diabetes insipidus, DKA. Data reviewed: vital signs, nurses [facility] notes, lab test result(s), EKG, radiologic studies. Data interpreted: color television console monitor: rate is 117 beats/min, rhythm is regular, Pulse oximetry: on room air is 97 %. Test interpretation: by ED physician or midlevel provider: ECG, plain radiologic studies. Counseling: I had a detailed discussion with the patient and/or guardian regarding: the historical points, exam findings, and any diagnostic results supporting the discharge/admit diagnosis, lab results, radiology results, the need for further work-up and treatment in the hospital. 12/15 12:06 Order name: Basic Metabolic Panel [facility] 12/15 12:06 Order name: CBC with Diff [facility] 12/15 12:06 Order name: LFT's [facility] 12/15 12:06 Order name: Magnesium [facility] 12/15 12:06 Order name: NT PRO-BNP [facility] 12/15 12:06 Order name: Troponin (emerg Dept Use Only) [facility] 12/15 12:52 Order name: Basic Metabolic Panel; Complete Time: 13:32 [facility] 12/15 12:52 Order name: Liver (Hepatic) Function; Complete Time: 13:32 [facility] 12/15 12:52 Order name: Troponin (Emerg Dept Use Only); Complete Time: 13:32 [facility] 12/15 12:52 Order name: NT PRO-BNP; Complete Time: 13:32 [facility] 12/15 12:52 Order name: Magnesium; Complete Time: 13:32 [facility] 12/15 12:52 Order name: CBC with Automated Diff; Complete Time: 13:06 [facility] 12/15 12:57 Order name: Urine Dipstick--Ancillary (enter results) [facility] 12/15 12:24 Order name: Chest Single View; Complete Time: 13:32 [facility] 12/15 12:57 Order name: Urine --Ancillary (enter results) [facility] 12/15 13:38 Order name: Blood Culture Adult (2) [facility] 12/15 13:39 Order name: ABG Arterial Blood Gas [facility] 12/15 13:39 Order name: Flu [facility] 12/15 13:39 Order name: COVID-19 [facility] 12/15 13:40 Order name: Glucose, Ancillary Testing [facility] 12/15 14:38 Order name: Blood Culture [facility] 12/15 14:58 Order name: Glucose, Ancillary Testing [facility] 12/15 15:58 Order name: Glucose, Ancillary Testing [facility] 12/15 12:06 Order name: EKG; Complete Time: 14:46 [facility] 12/15 12:06 Order name: Cardiac monitoring; Complete Time: 12:11 [facility] 12/15 12:06 Order name: EKG - Nurse/Tech; Complete Time: 12:33 [facility] 12/15 12:06 Order name: IV Saline Lock; Complete Time: 12:11 [facility] 12/15 12:06 Order name: Labs collected and sent; Complete Time: 13:12 [facility] 12/15 12:06 Order name: O2 Per Protocol; Complete Time: 12:11 [facility] 12/15 12:06 Order name: O2 Sat Monitoring; Complete Time: 12:11 [facility] 12/15 12:06 Order name: Urine Dipstick-Ancillary (obtain specimen); Complete Time: 12:56 [facility] 12/15 12:06 Order name: Urine Test (obtain specimen); Complete Time: 12:56 nancy EC:01 Rate is 113 beats/min. Rhythm is regular. QRS [place] is Normal. DC interval is normal. nancy QRS interval is normal. QT interval is normal. No Q waves. T waves are Normal. No ST changes noted. Clinical impression: NSR w/ Non-specific ST/T Changes and No evidence of ischemia. Interpreted by me. Reviewed by me. Administered Medications: 12:00 Drug: Phenergan 12.5 mg Route: IVP; Site: right antecubital; ae4 14:34 Follow up: Response: Nausea is decreased ae4 12:00 Drug: NS 0.9% 1000 ml Route: IV; Rate: 1 bolus; Site: right antecubital; ae4 14:35 Follow up: IV Status: Completed infusion ae4 12:00 Drug: NS 0.9% 1000 ml Route: IV; Rate: 1 bolus; Site: right antecubital; ae4 14:55 Follow up: IV Status: Completed infusion; IV Intake: 1000ml aa5 13:00 Drug: NS 0.9% 1000 ml Route: IV; Rate: 1 bolus; Site: right antecubital; ae4 16:00 Follow up: IV Status: Infusion continued upon admission aa5 13:30 Drug: Phenergan 12.5 mg Route: IVP; Site: right hand; ae4 14:17 Follow up: Response: Nausea is decreased ae4 13:39 Not Given (Duplicate Order): morphine 2 mg IVP once; (PAIN>8) RASS on ADMN: Combtv4, nancy Very Agttd3, Agttd2, Rstlss1, AlertClm0, Drwsy-1, LtSdtn-2, ModSdtn-3, DpSdtn-4, UnArsble-5 x2 13:39 Not Given (Duplicate Order): Zofran (Ondansetron) 4 mg IVP once; over 2 minutes nancy 14:55 Drug: Pepcid 20 mg Route: IVP; Site: right jugular; aa5 14:55 Drug: Stadol 1 mg Route: IVP; Site: right jugular; aa5 15:15 Follow up: Response: No adverse reaction; Pain is decreased aa5 14:57 Drug: Rocephin 1 grams Route: IV; Rate: per protocol; Site: right jugular; aa5 15:15 Follow up: Response: No adverse reaction aa5 15:00 Drug: Insulin Drip - (Insulin Regular Human 100 units, NS 0.9% 100 ml) {Co-Signature: aa5 iw (Felicia Nuno RN).} {Note: started at 5units/hr per Dr. Delgadillo (hospitalist).} Route: IV; Rate: 5 units/hr; Site: right jugular; 15:47 Follow up: FSBG 176, insulin drip decreased to 2.5units/hr. aa5 16:00 Follow up: IV Status: Infusion continued upon admission aa5 Point of Care Testing: Blood Glucose: 12:11 Blood Glucose: 348 mg/dL; ae4 15:45 Blood Glucose: 176 mg/dL; aa5 Ranges: Critical Glucose Levels:Adult <50 mg/dl or >400 mg/dl <40 mg/dl or >180 mg/dl Disposition: 12/16/19 13:37 Hospitalization ordered by Luisito Delgadillo for Inpatient Admission. Preliminary diagnosis are Diabetes mellitus due to underlying condition with ketoacidosis without coma, Malaise and fatigue, Vomiting, Type 1 diabetes mellitus. - Bed requested for Intensive Care Unit. - Status is Inpatient Admission. aa5 - Condition is Fair. - Problem is new. - Symptoms have improved. Signatures: Dispatcher [employer] EDNV Geovani Brunner MD MD cha Calderon, Audri, RN RN aa5 Nj Calix RN RN ae4 Felicia Nuno RN iw Corrections: (The following items were deleted from the chart) 14:05 13:37 Hospitalization Ordered by Luisito Delgadillo MD for Inpatient Admission. Preliminary nancy diagnosis is Diabetes mellitus due to underlying condition with ketoacidosis without coma; Malaise and fatigue; Vomiting. Bed requested for Intensive Care Unit. Status is Inpatient Admission. Condition is Fair. Problem is new. Symptoms have improved. nancy 14:51 14:46 Chest Single View+RAD.RAD.BRZ ordered. EDMS EDMS 14:52 14:47 Arterial Blood Gas+RC.LAB.BRZ ordered. EDNV EDMS 16:15 14:05 12/16/2019 13:37 Hospitalization Ordered by Luisito Delgadillo MD for Inpatient aa5 Admission. Preliminary diagnosis is Diabetes mellitus due to underlying condition with ketoacidosis without coma; Malaise and fatigue; Vomiting; Type 1 diabetes mellitus. Bed requested for Intensive Care Unit. Status is Inpatient Admission. Condition is Fair. Problem is new. Symptoms have improved. nancy
--- NOTE | 2019-12-16 13:38 | ER ---
Nurse's Notes [facility] Name: Marisol Hull Age: 49 yrs Sex: Female : 1970 Arrival Date: 12/16/2019 Time: 12:01 Bed 16 Private MD: Diagnosis: Diabetes mellitus due to underlying condition with ketoacidosis without coma;Malaise and fatigue;Vomiting;Type 1 diabetes mellitus Presentation: 12/15 12:02 Chief complaint: EMS states: EMS reports pt called EMS for SOB, FSBS 364. Pt has ae4 insulin pump, pt self administered 10 units between [id number]. Pt reports nausea and abdominal pain. EMS administered 12.5 mg phenergan at 1150. Coronavirus screen: Client denies travel out of the [place] in the last 14 days. Ebola Screen: Patient denies travel to an Ebola-affected area in the 21 days before illness onset. No symptoms or risks identified at this time. Risk Assessment: Do you want to hurt yourself or someone else? Patient reports no desire to harm self or others. 12:02 Method Of Arrival: EMS: [facility] ae4 12:02 Acuity: YASMIN 3 ae4 14:48 Initial Sepsis Screen: Does the patient meet any 2 criteria? No. Patient's initial ae4 sepsis screen is negative. Does the patient have a suspected source of infection? Yes: No. Patient's initial sepsis screen is negative. Onset of symptoms was December 12, 2019. Triage Assessment: 13:13 General: Appears uncomfortable, obese, Behavior is cooperative, anxious, restless. ae4 Pain: Complains of pain in Pain all over. EENT: No signs and/or symptoms were reported regarding the EENT system. Neuro: Level of Consciousness is awake, alert, obeys commands, Oriented to person, place, time, situation, Appropriate for age. Cardiovascular: Heart tones S1 S2 Patient's skin is warm and dry. Respiratory: Airway is patent. GI: Abdomen is round obese, Pt is actively vomiting. 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 - Family history:: not pertinent. - Social history:: Smoking status: Patient/guardian denies using tobacco, but has a distant history of tobacco abuse. Screenin:13 Abuse screen: Denies threats or abuse. Nutritional screening: No deficits noted. ae4 Tuberculosis screening: No symptoms or risk factors identified. Fall Risk None identified. Assessment: 12:45 Reassessment: X-ray at bedside. ae4 14:17 Reassessment: Awaiting medications from pharamcy. ae4 14:35 Reassessment: Dr. Delgadillo at bedside, discussing patient plan of care. ae4 14:47 Reassessment: FSBS 242. ae4 14:50 Reassessment: Report received from URIAH Mauro. Pt currently sitting up in bed speaking aa5 to Dr. Delgadillo (hospitalist). 14:55 Pain: Complains of pain in whole body. Neuro: Level of Consciousness is awake, alert, aa5 obeys commands, Oriented to person, place, time, situation. Respiratory: Airway is patent Respiratory effort is even, unlabored, Respiratory pattern is regular, symmetrical. GI: Reports nausea has improved. Derm: Skin is pink, warm \T\ dry. 15:15 Reassessment: Patient is alert, oriented x 3, equal unlabored respirations, skin aa5 warm/dry/pink. Pt notified of wait time to be transferred to ICU. Pt reports feeling better, reports pain has decreased. . 16:00 Reassessment: Patient is alert, oriented x 3, equal unlabored respirations, skin aa5 warm/dry/pink. Vital Signs: 12:02 Pulse 108; Resp 19; Temp 97.6; Pulse Ox 99% ; ae4 12:11 BP 121 / 71; Pulse 117; Resp 19; Pulse Ox 97% on R/A; Weight 77.11 kg (R); ae4 13:12 BP 123 / 68; Pulse 112; Resp 19; Pulse Ox 97% on R/A; ae4 14:19 BP 123 / 70; Pulse 110; Resp 19; Pulse Ox 99% on R/A; ae4 15:01 BP 118 / 58; Pulse 105; Resp 16; Pulse Ox 99% on R/A; aa5 15:48 BP 125 / 67; Pulse 109; Resp 18 S; Pulse Ox 98% on R/A; aa5 ED Course: 12:01 Patient arrived in ED. ae4 12:02 Geovani Brunner MD is Attending Physician. nancy 12:06 Triage completed. ae4 12:07 Arm band placed on left wrist. ae4 12:07 Placed in gown. Bed in low position. Call light in reach. Side rails up X 1. Adult w/ ae4 patient. quality assurance monitor chassis on. Pulse ox on. NIBP on. Warm blanket given. 12:07 Maintain EMS IV. Dressing intact. Good blood return noted. Site clean \T\ dry. Gauge \T\ ae 4 site: 20 R AC. 12:35 Nj Calix RN is Primary Nurse. ae4 12:58 Chest Single View In Process Unspecified. EDMS 13:36 Luisito Delgadillo MD is Hospitalizing Provider. nancy 13:37 Inserted saline lock: 24 gauge in right hand, using aseptic technique. jd3 14:18 Inserted saline lock: 18 gauge in right EJ, using aseptic technique. ,using aseptic ae4 technique. by Dr. Geovani Brunner Blood collected. 16:00 No provider procedures requiring assistance completed. Patient admitted, IV remains in aa5 place. Administered Medications: 12:00 Drug: Phenergan 12.5 mg Route: IVP; Site: right antecubital; ae4 14:34 Follow up: Response: Nausea is decreased ae4 12:00 Drug: NS 0.9% 1000 ml Route: IV; Rate: 1 bolus; Site: right antecubital; ae4 14:35 Follow up: IV Status: Completed infusion ae4 12:00 Drug: NS 0.9% 1000 ml Route: IV; Rate: 1 bolus; Site: right antecubital; ae4 14:55 Follow up: IV Status: Completed infusion; IV Intake: 1000ml aa5 13:00 Drug: NS 0.9% 1000 ml Route: IV; Rate: 1 bolus; Site: right antecubital; ae4 16:00 Follow up: IV Status: Infusion continued upon admission aa5 13:30 Drug: Phenergan 12.5 mg Route: IVP; Site: right hand; ae4 14:17 Follow up: Response: Nausea is decreased ae4 13:39 Not Given (Duplicate Order): morphine 2 mg IVP once; (PAIN>8) RASS on ADMN: Combtv4, nancy Very Agttd3, Agttd2, Rstlss1, AlertClm0, Drwsy-1, LtSdtn-2, ModSdtn-3, DpSdtn-4, UnArsble-5 x2 13:39 Not Given (Duplicate Order): Zofran (Ondansetron) 4 mg IVP once; over 2 minutes nancy 14:55 Drug: Pepcid 20 mg Route: IVP; Site: right jugular; aa5 14:55 Drug: Stadol 1 mg Route: IVP; Site: right jugular; aa5 15:15 Follow up: Response: No adverse reaction; Pain is decreased aa5 14:57 Drug: Rocephin 1 grams Route: IV; Rate: per protocol; Site: right jugular; aa5 15:15 Follow up: Response: No adverse reaction aa5 15:00 Drug: Insulin Drip - (Insulin Regular Human 100 units, NS 0.9% 100 ml) {Co-Signature: aa5 iw (Felicia Nuno RN).} {Note: started at 5units/hr per Dr. Delgadillo (hospitalist).} Route: IV; Rate: 5 units/hr; Site: right jugular; 15:47 Follow up: FSBG 176, insulin drip decreased to 2.5units/hr. aa5 16:00 Follow up: IV Status: Infusion continued upon admission aa5 Point of Care Testing: Blood Glucose: 12:11 Blood Glucose: 348 mg/dL; ae4 15:45 Blood Glucose: 176 mg/dL; aa5 Ranges: Intake: 14:55 IV: 1000ml; Total: 1000ml. aa5 Outcome: 13:37 Decision to Hospitalize by Provider. nancy 16:00 Patient left the ED. aa5 16:00 Admitted to ICU accompanied by nurse, via wheelchair, with chart, Report called to ICU aa5 nurse 16:00 Condition: stable aa5 16:00 Instructed on the need for admit, Demonstrated understanding of instructions. Addendum: 12/19/2019 17:30 Addendum: COVID-19 Result: Negative result given to RN to notify pt. Left voice mail. a a5 18:25 Addendum: COVID-19 Result: Negative result given to RN to notify pt. Notified pt of a a5 negative COVID 19 swab results. Pt advised that even with a negative test result they should remain in isolation until symptom free for 3 days without medication. Pt also advised to return to the ED for worsening symptoms. Signatures: Dispatcher [employer] Geovani Hinojosa MD MD cha Calderon, Audri, RN RN aa5 Inocencio Estrella RN RN jd3 Nj Calix RN RN ae4 Felicia Nuno RN iw Corrections: (The following items were deleted from the chart) 12/15 14:18 14:14 Reassessment: venancio ae4 16:16 16:15 Patient left the ED. susie aa5
[2019-12-16] MEDS ORDERED: CEFTRIAXONE/SWI 1gm 1 GM/10 ML SYR ONE (13:57)
[2019-12-16 14:26] LABS: Arterial Blood Carboxyhemoglob 1.2 % (0-1.5); Blood Gas Oxyhemoglobin 95.4 % (94-97); Blood O2 Saturation 97.4 % (92-98.5)
[2019-12-16] MEDS ORDERED: BUTORPHANOL 1 MG/ML INJ ONE ×2 (14:55→21:05)
[2019-12-16] MEDS ORDERED: INSULIN -REGULAR HUMAN 100 UNIT in NA CHLORIDE 0.9% 100 ML IV SCH (15:00)
[2019-12-16] MEDS ORDERED: BUTORPHANOL 1 MG/ML INJ IV ONE (15:00)
--- NOTE | 2019-12-16 15:07 | P.HP ---
Certification for Inpatient Patient admitted to: Inpatient With expected LOS: >2 Midnights Practitioner: I am a practitioner with admitting privileges, knowledge of patient current condition, hospital course, and medical plan of care. Services: Services provided to patient in accordance with Admission requirements found in Title 42 Section 412.3 of the Code of Federal Regulations Patient History Date of Service: 12/16/19 Reason for admission: DKA History of Present Illness: 49yo female, PMH: Type 1 diabetes mellitus with gastroparesis, has depression/anxiety who presented to the ED due to elevated glucose readings over 300. She reports she was in her usual state of health until this morning when she felt dizzy, with associated nausea and vomiting. She checked her glucose levels and they are over 400. She administered 10 units of short-acting insulin via her pump and called 911. She reports feeling like "everything hurts" since EMS arrival, and some abdominal discomfort. She denies any recent illness, no fevers, no chills, no shortness of breath, no chest pain, no dysuria, no new rashes or lesions. She does state she has been having issues since getting her new pump 3 weeks ago. The infusion site of her pump broke a few days ago and she receive replacements 2 days ago. She says the replacements are different size, much smaller, and she is concerned that she is not getting the correct dosage. She reports some noncompliance with her diet yesterday and she had some candy last night. She states she corrected for this with her palm, but unsure if she received accurate dosing In the ED, her glucose was 353, pH: Some 0.261, anion gap of 18. She received 2 L of NS bolus and Phenergan. She reported feeling much better when I saw her. Allergies codeine Allergy (Unverified 07/05/14 06:03) Unknown - Past Medical/Surgical History -: Type 1 DM -: Depression / Anxiety -: Bilateral carpal tunnel release. -: Appendectomy -: - Family History Family History: Reviewed- Non-Contributory (Patient reports no significant family medical history) - Social History Smoking Status: Former smoker (Quit in 2002) Alcohol use: Yes Place of Residence: Home Review of Systems 10-point ROS is otherwise unremarkable Physical Examination - Physical Exam General: Alert, In no apparent distress, Oriented x3 HEENT: Sclerae nonicteric Respiratory: Clear to auscultation bilaterally Cardiovascular: No edema, Regular rate/rhythm, Normal S1 S2 Gastrointestinal: Soft and benign, Non-distended, Tenderness (mild-moderate in epigastrium) Musculoskeletal: No tenderness Integumentary: No rashes Neurological: Normal speech, Normal affect - Studies Laboratory Data (last 24 hrs) 12/16/19 12:13: WBC 9.1, Hgb 12.5, Hct 37.5, Plt Count 315 12/16/19 12:13: Sodium 136, Potassium 4.2, BUN 15, Creatinine 0.92, Glucose 353 H, Magnesium 2.2, Total Bilirubin 0.4, AST 15, ALT 15, Alkaline Phosphatase 129 H Assessment and Plan - Advance Directives Does patient have a Living Will: No Does patient have a Durable POA for Healthcare: No Physician Review Additional Text: Type 1 diabetes mellitus with ketoacidosis Depression/anxiety -admit to ICU, s/p 10 units of SQ insulin via her pump on arrival, insulin drip started during my exam -continue insulin drip until glucose less than 200, 1/2NS + KCL @250ml/hr until glc <200; and gap is closed -BMP q4h, glc checks q1hr -no evidence of infection on exam or per history, not septic -likely precipitated due to malfunctioning insulin pump and poor dietary compliance yesterday/last night -obtain home meds and restart as appropriate VTE: Lovenox Code: full Dispo: anticipate dc home in ~48hrs Time Spent Managing Pts Care (In Minutes): 55
[2019-12-16 16:31] VITALS: O2SAT 99
[2019-12-16] MEDS ORDERED: NACHLORIDE 0.45% 1,000 ML with POTASSIUM CL 20 MEQ IV SCH ×2 (16:44)
[2019-12-16 17:31] VITALS: BMI 30.1
[2019-12-16] MEDS: ENOXAPARIN 40 MG/0.4 ML SQ SCH (17:48)
[2019-12-16] MEDS ORDERED: ENOXAPARIN 40 MG/0.4 ML SQ ONE (17:59)
[2019-12-16] MEDS ORDERED: BUTORPHANOL 1 MG/ML INJ IV PRN (19:37)
[2019-12-16] MEDS ORDERED: GLUCAGON 1 MG/VIAL IM PRN (20:13)
[2019-12-16] MEDS ORDERED: D50W 25 GM/50 ML SYRINGE/VIAL IV PRN (20:13)
[2019-12-16] MEDS: INSULIN -REGULAR HUMAN 50 UNIT/0.5 ML ML SQ SCH (20:33)
[2019-12-16] MEDS: NACHLORIDE 0.45% 1,000 ML IV SCH (20:33)
[2019-12-16] MEDS ORDERED: PANTOPRAZOLE 40MG TABLET PO ONE (20:34)
[2019-12-16] MEDS ORDERED: INSULIN GLARGINE 100 UNITS/ML SQ ONE (20:41)
[2019-12-16] MEDS ORDERED: NACHLORIDE 0.45% 1,000 ML IV ONE (20:41)
[2019-12-16] MEDS ORDERED: INSULIN -REGULAR HUMAN 50 UNIT/0.5 ML ML ONE (20:41)
[2019-12-16 20:55] LABS: Urine Appearance CLEAR; Urine Bilirubin NEGATIVE (NEG); Urine Blood NEGATIVE (NEG); Urine Color YELLOW; Urine Glucose 3+ (NEG); Urine Protein NEGATIVE (NEG); Urine Specific Gravity >=1.030 (1.005-1.030); Urine Urobilinogen 0.2 mg/dL (0.2-1.0); Urine pH 5.5 (5.0-7.0)
[2019-12-16] MEDS ORDERED: ESOMEPRAZOLE MAGNESIUM PO SCH (21:00)
[2019-12-16] MEDS ORDERED: INSULIN GLARGINE 100 UNITS/ML SQ SCH (21:00)
[2019-12-16] MEDS ORDERED: TEMAZEPAM 15 MG CAP PO SCH (21:00)
[2019-12-16] MEDS ORDERED: AMITRIPTYLINE 10 MG TAB PO SCH (21:00)
[2019-12-16] MEDS ORDERED: ATORVASTATIN 10 MG TAB PO SCH (21:00)
[2019-12-16] MEDS ORDERED: PANTOPRAZOLE 40MG TABLET PO SCH (21:00)
[2019-12-16] MEDS ORDERED: INSULIN -REGULAR HUMAN 50 UNIT/0.5 ML ML SQ SCH ×2 (21:00)
[2019-12-16 21:03] LABS: Urine Microscopic Reflex NO UMIC
[2019-12-16] MEDS: PROMETHAZINE INJ 25 MG/ML AMP IV PRN (21:40)
[2019-12-16 21:43] LABS: Potassium 4.7 mmol/L (3.5-5.1)
[2019-12-17] MEDS: INSULIN -REGULAR HUMAN 50 UNIT/0.5 ML ML SQ SCH ×4 (01:09→11:21)
[2019-12-17] MEDS ORDERED: NACHLORIDE 0.45% 1,000 ML IV ONE (04:30)
[2019-12-17 04:47] LABS: Absolute Lymphocytes (CBC) 2.3 K/uL (0.7-4.9); Basophils % 0.8 % (0-1.3); Hematocrit 35.7 % (36.0-45.0); Lymphocytes % 29.2 % (15.3-44.8); MPV 7.6 fL (7.6-11.3); RBC Red Blood Cell Count 3.85 M/uL (3.86-4.86)
[2019-12-17] MEDS: NACHLORIDE 0.45% 1,000 ML IV SCH (04:48)
[2019-12-17 05:09] LABS: BUN Blood Urea Nitrogen 12 mg/dL (7-18); Bicarbonate 21 mmol/L (21-32); Glucose Level 76 mg/dL (74-106); Magnesium 2.6 mg/dL (1.8-2.4); Phosphorus 2.9 mg/dL (2.5-4.9); Potassium 3.8 mmol/L (3.5-5.1); Sodium Level 142 mmol/L (136-145)
[2019-12-17] MEDS: PROMETHAZINE INJ 25 MG/ML AMP IV PRN (08:29)
[2019-12-17] MEDS: ENOXAPARIN 40 MG/0.4 ML SQ SCH (08:29)
[2019-12-17] MEDS ORDERED: POTASSIUM CL SA 10 MEQ TAB PO ONE ×2 (08:40→09:00)
[2019-12-17] MEDS ORDERED: ENOXAPARIN 40 MG/0.4 ML SQ ONE (08:40)
[2019-12-17] MEDS ORDERED: PROMETHAZINE INJ 25 MG/ML AMP ONE (08:40)
--- NOTE | 2019-12-17 08:58 | P.DS ---
Admission Date: 12/16/19 Discharge Date: 12/17/19 Disposition: DC HOME/HOME HEALTH CARE Discharge Condition: GOOD Reason for Admission: DKA Procedures: CXR (12/15): No acute abnormalities displayed Problem List Type 1 diabetes mellitus, with ketoacidosis Depression and anxiety Brief History of Present Illness: 49yo female, PMH: Type 1 diabetes mellitus with gastroparesis, has depression/anxiety who presented to the ED with dizziness, nausea and vomiting, and elevated glucose readings at home over 400. In the ED she was found to be in DKA, her glucose was 353, pH: PH: 7.26, anion gap of 18. She received 2 L of NS bolus and Phenergan. Hospital Course: She was admitted to the ICU, was started on insulin drip. She had quick impr ovement and resolution of her DKA within a few hours. She was feeling much better, tolerating a diabetic diet and felt ready to be discharged home. After a long discussion with the patient, it seems that she was having issues with her insulin pump. She reported a piece of the injection site was broken and she recently replaced it 2-3 days ago. Since then her glucose has been more uncontrolled than usual. Patient states she has AV a regimen of Lantus and NovoLog and that she uses when she is not using her insulin pump. She was discharged to continue with this regimen until she has her insulin pump further evaluated/replaced. She is to follow up with her PCP in 3-5 days. Refills for the Lantus and NovoLog were sent to her pharmacy. Vital Signs/Physical Exam: Temp Pulse Resp BP Pulse Ox 97.5 F 83 14 94/44 L 97 12/17/19 04:00 12/17/19 06:00 12/17/19 06:00 12/17/19 06:00 12/17/19 06:00 General: Alert, In no apparent distress, Oriented x3 HEENT: Mucous membr. moist/pink, Sclerae nonicteric Respiratory: Clear to auscultation bilaterally, Normal air movement Cardiovascular: No edema, Regular rate/rhythm Gastrointestinal: Soft and benign, Non-distended, No tenderness Musculoskeletal: No tenderness Integumentary: No rashes Neurological: Normal speech, Normal strength at 5/5 x4 extr, Normal affect Laboratory Data at Discharge: WBC 8.0 K/uL (4.3-10.9) 12/17/19 04:16 Hgb 11.7 g/dL (12.0-15.0) L 12/17/19 04:16 Hct 35.7 % (36.0-45.0) L 12/17/19 04:16 Plt Count 303 K/uL (152-406) 12/17/19 04:16 Sodium 142 mmol/L (136-145) 12/17/19 04:16 Potassium 3.8 mmol/L (3.5-5.1) 12/17/19 04:16 BUN 12 mg/dL (7-18) 12/17/19 04:16 Creatinine 0.68 mg/dL (0.55-1.3) 12/17/19 04:16 Glucose 76 mg/dL (74-106) 12/17/19 04:16 Phosphorus 2.9 mg/dL (2.5-4.9) 12/17/19 04:16 Magnesium 2.6 mg/dL (1.8-2.4) H 12/17/19 04:16 Total Bilirubin 0.4 mg/dL (0.2-1.0) 12/16/19 12:13 AST 15 U/L (15-37) 12/16/19 12:13 ALT 15 U/L (12-78) 12/16/19 12:13 Alkaline Phosphatase 129 U/L (45-117) H 12/16/19 12:13 Home Medications: ARIPiprazole [Aripiprazole] 1 tab PO DAILY 12/16/19 Amitriptyline [Elavil*] 1 tab PO BEDTIME 12/16/19 Atorvastatin Calcium [Lipitor*] 1 tab PO BEDTIME 12/16/19 Empagliflozin [Jardiance] 1 tab PO DAILY 12/16/19 Esomeprazole Magnesium [Nexium] 1 tab PO BEDTIME 12/16/19 Estradiol [Estrace] 1 tab PO BEDTIME 12/16/19 PARoxetine HCL [Paroxetine HCl] 1 tab PO DAILY 12/16/19 Promethazine HCl 1 tab PO TIDP PRN 12/16/19 Temazepam 1 tab PO BEDTIME 12/16/19 clonazePAM [Clonazepam] 1 tab PO Q6HP PRN 12/16/19 Insulin Aspart [Novolog Flexpen] 100 unit SQ SEECOM #1 insuln.pen 12/17/19 Insulin Glargine,Hum.rec.anlog [Lantus Solostar] 12 unit SQ DAILY #1 insuln.pen 12/17/19 New Medications: Insulin Glargine,Hum.rec.anlog [Lantus Solostar] 12 unit SQ DAILY #1 insuln.pen Insulin Aspart [Novolog Flexpen] 100 unit SQ SEECOM #1 insuln.pen Patient Discharge Instructions: follow up with PCP within 3-5 days. Replace insulin pump / have it fixed. Resume usual Lantus / Novolog insulin - refills sent to pharmacy Diet: ADA Activity: Ad ruddy Followup: Keven Santana MD [Primary Care Provider] - Time spent managing pt's care (in minutes): 35
[2019-12-17] MEDS ORDERED: ARIPIPRAZOLE PO SCH (09:00)
[2019-12-17] MEDS ORDERED: PARoxetine HCL 10 MG TAB PO SCH (09:00)
--- NOTE | 2019-12-17 10:13 | EKG ---
Test Date: 2019-12-16 Test Time: 12:31:01 Client Services Manager: DAVID MEASUREMENT RESULTS: Intervals: Rate: 113 HI: 134 QRSD: 88 QT: 314 QTc: 430 [place]: P: 69 HI: 134 QRS: 70 T: 35 INTERPRETIVE STATEMENTS: Sinus tachycardia Otherwise normal ECG No previous ECG available for comparison Electronically Signed On 12-17-19 10:10:19 ABSTRACT CLERK by Manjit Brooks
[2019-12-17 10:14] VITALS: BP 101/51; TEMP 97.8
[2019-12-17] MEDS ORDERED: INSULIN -REGULAR HUMAN 50 UNIT/0.5 ML ML ONE (11:34)
== END 2019-12-17 11:27 | disposition home or self-care (01) ==
LOC: ER 11:52 → ERHOLD 15:03 → INTOOBSV 15:03 → ERHOLD 16:12
PROVIDERS: ADMIT Hospitalist; ATTEND Hospitalist
DX: E10.10 Type 1 diabetes mellitus with ketoacidosis without coma (principal); F41.8 Other specified anxiety disorders; E10.43 Type 1 diabetes mellitus with diabetic autonomic (poly)neuropathy; K31.84 Gastroparesis; Z20.828 Contact with and (suspected) exposure to other viral communicable diseases; Z87.891 Personal history of nicotine dependence; Z96.41 Presence of insulin pump (external) (internal)
CPT/HCPCS: 93005; 87040; 85025 ×2; 80048 ×4; 36415; 83735 ×2; 84100; 82947 ×11; 80076; 81003; 84484; 83880; 87804 ×2; 71045; 82805; 99285; U0002; J0595 ×2; J2550 ×4; J1650 ×2; J0696; J7030; G0378 ×3; J1815; J3480

== ENCOUNTER 2020-10-09 00:25 | Emergency (ER) | payer BC ==
--- OUTSIDE RECORDS SUMMARY | 2020-10-09 00:29 | XMS REPORT | Continuity of Care Document ---
:1970 Author Organization [facility] t Address [address] [place] [address] Care Team Providers Name Role Phone Mira Holt Attending Clinician Unavailable Jacki Pennington Attending Clinician Unavailable Vale Palm MD Attending Clinician Doctor Unassigned, Name Attending Clinician Unavailable Only, Test Attending Clinician Unavailable 2, Lab Attending Clinician Unavailable Jacki Pennington Admitting Clinician Unavailable Vale Palm MD Admitting Clinician Payers Payer Name Policy Type Policy Number Effective Date Expiration Date S ource Problems Condition Condition Condition Status Onset Resolution Last Treating Co mments Source Name Details Category Date Date Treatment Clinician Date Hypoglycem Hypoglycem Problem Active [facility] [place] 6 Family 00:00: Practic 00 e Body mass Body Mass Problem Active Daljit rubén index 30+ Index 30+ 6-25 Fami ly - obesity - Obesity 00:00: Prac tic 00 e Type 1 Type [address] [facility] diabetes Diabetes 3- Family mellitus Mellitus 00:00: Practi c 00 e Obesity Obesity Problem Active [facility] 3- Family 00:00: Practic 00 e Clinical Clinical Problem Active [place] [facility] finding Finding 2-07 Family 00:00: Practic 00 e Finding of Finding of Problem Active [facility] esophagus Esophagus 03-24 Fami ly 00:00: Practic e Hyperlipid Hyperlipid Problem Active [facility] emia emia 03-24 Family 00:00: Practic e Depressive Depressive Problem Active [facility] disorder Disorder 03-24 Family 00:00: Practic e SNOMED CT SNOMED CT Problem Active Daljit rubén Concept Concept 03-24 Family 00:00: Practic e Finding Finding Problem Active [place] related to Related to 03-24 Fa daniel sleep Sleep 00:00: Practic e Allergies, Adverse Reactions, Alerts Allergy Allergy Status Severity Reaction(s) Onset Inactive Treating Comm ents Source Name Type Date Date Clinician paulo PABLO Active [place] [facility] karine 8-24 [place] 00:00: [facility] codeine DA Active [place] 2019-02 [facility] 2-16 [place] 00:00: d 00 [facility] ondansblanca DA Active [place] 2019-02 [facility] karine 2-16 [place] 00:00: d 00 [facility] codeine DA Active [place] [facility] 1-15 [place] 00:00: Orthope 00 [facility] Codeine Allergy Active [place] to Family substanc Practic e e Social History Smoking Status Start Date Stop Date Source Former [facility] Medications Ordered Filled Start Stop Current Ordering Indication Dosage Frequency Signature Comments Components Source Medication Medication Date Date Medication? Clinician (SIG) Name Name atorvastati atorvastati No atorvastat [place] n 10 mg n 10 mg in 10 mg Famil y tablet Take tablet Take tablet Practic 1 tablet 1 tablet Take 1 e every day every day tablet by oral by oral every day route. route. by oral route. bupropion bupropion No bupropion [facility] HCl XL 150 HCl XL 150 HCl XL 150 Family mg 24 hr mg 24 hr mg 24 hr Pra ctic tablet, tablet, tablet, e extended extended extended release release release Take 1 Take 1 Take 1 tablet tablet tablet every day every day every day by oral by oral by oral route. route. route. bupropion bupropion No bupropion [facility] HCl XL 300 HCl XL 300 HCl XL 300 Family mg 24 hr mg 24 hr mg 24 hr Pra ctic tablet, tablet, tablet, e extended extended extended release release release ciprofloxac ciprofloxac No ciprofloxa [facility] in 500 mg in 500 mg [place] 500 mg Family tablet tablet tablet Practic e clonazepam clonazepam No clonazepam [facility] 2 mg tablet 2 mg tablet 2 mg F amily TAKE ONE TAKE ONE tablet Pract ic (1) (1) TAKE ONE e TABLET(S) TABLET(S) (1) BY MOUTH BY MOUTH TABLET(S) FOUR TIMES FOUR TIMES BY MOUTH A DAY A DAY FOUR TIMES NEEDED FOR NEEDED FOR A DAY ANXIETY. ANXIETY. NEEDED FOR ANXIETY. ergocalcife ergocalcife No 1capsul Q1D ergocalcif [facility] rol rol e(s) marvin Family (vitamin (vitamin (vitamin Pra ctic D2) 1,250 D2) 1,250 D2) 1,250 e mcg (50,000 mcg (50,000 mcg unit) unit) (50,000 capsule capsule unit) Take 1 Take 1 capsule capsule capsule Take 1 every day every day capsule by oral by oral every day route as route as by oral directed directed route as for 84 for 84 directed days. days. for 84 days. esomeprazol esomeprazol No esomeprazo Village e magnesium e magnesium le F amily 40 mg 40 mg magnesium Practic capsule,del capsule,del 40 mg e ayed ayed capsule,de release release layed release estradiol 1 estradiol 1 No estradiol Village mg tablet mg tablet 1 mg Famil y Take 1 Take 1 tablet Practic tablet tablet Take 1 e every day every day tablet by oral by oral every day route as route as by oral directed directed route as for 90 for 90 directed days. days. for 90 days. Gvoke Gvoke No Gvoke [place] HypoPen HypoPen HypoPen Family 2-Pack 1 2-Pack 1 2-Pack 1 Pra ctic mg/0.2 mL mg/0.2 mL mg/0.2 mL e subcutaneou subcutaneou subcutaneo s s us auto-inject auto-inject auto-injec or Use once or Use once tor Use for for once for hypoglycemi hypoglycemi hypoglycem a as needed a as needed ia as needed Humalog Humalog No 15unit( Q1D Humalog Daljit rubén KwleaPen KwikPen s) KwikPen Family (U-100) (U-100) (U-100) Practi c Insulin 100 Insulin 100 Insulin e unit/mL unit/mL 100 subcutaneou subcutaneou unit/mL s Inject 15 s Inject 15 subcutaneo units every units every us Inject day by day by 15 units sub-q route sub-q route every day as directed as directed by sub-q for 30 for 30 route as days. days. directed for 30 days. Humalog Humalog No Humalog Villag e U-100 U-100 U-100 Family Insulin 100 Insulin 100 Insulin Practic unit/mL unit/mL 100 e subcutaneou subcutaneou unit/mL s solution s solution subcutaneo Use daily Use daily us with with solution insulin insulin Use daily pump: TDD pump: TDD with 65 65 insulin pump: TDD 65 inpen inpen No inpen [place] 100/pink/li 100/pink/li 100/pink/l Family lly renita lly renita bandar Pra ctic renita e Jardiance Jardiance No Jardiance [place] 10 mg 10 mg 10 mg Family tablet Take tablet Take tablet Practic 1 tablet 1 tablet Take 1 e every day every day tablet by oral by oral every day route as route as by oral directed directed route as for 90 for 90 directed days. days. for 90 days. Lantus Lantus No Lantus [place] Solostar Solostar Solostar Fam brayden U-100 U-100 U-100 Practic Insulin 100 Insulin 100 Insulin e unit/mL (3 unit/mL (3 100 mL) mL) unit/mL (3 subcutaneou subcutaneou mL) s pen give s pen give subcutaneo 15 units at 15 units at us pen bedtime and bedtime and give 15 icnrease as icnrease as units at directed: directed: bedtime TDD 30 TDD 30 and icnrease as directed: TDD 30 methocarbam methocarbam No methocarba [facility] ol 750 mg ol 750 mg mol 750 mg Family tablet tablet tablet Practic e metoclopram metoclopram No metoclopra [facility] miguel ángel 10 mg miguel ángel 10 mg mide 10 mg Family tablet tablet tablet Practic e Nexium 24HR Nexium 24HR No 1capsul Q1D Nexium [facility] 20 mg 20 mg e(s) 24HR 20 mg Family capsule,del capsule,del capsule,de Practic ayed ayed layed e release release release Take 1 Take 1 Take 1 capsule capsule capsule every day every day every day by oral by oral by oral route. route. route. paroxetine paroxetine No paroxetine [facility] 10 mg 10 mg 10 mg Family tablet tablet tablet Practic e promethazin promethazin No promethazi [place] e 25 mg e 25 mg ne 25 mg Famil y tablet tablet tablet Practic e temazepam temazepam No temazepam [facility] 15 mg 15 mg 15 mg Family capsule capsule capsule Practi c Take 2 Take 2 Take 2 e capsules capsules capsules every day every day every day by oral by oral by oral route at route at route at bedtime. bedtime. bedtime. Vyvanse 70 Vyvanse 70 No Vyvanse 70 Village mg once mg once mg once Family daily daily daily Practic e Zyrtec 10 Zyrtec 10 No 10mg Zyrtec 10 Village mg capsule mg capsule mg capsule Family Take 10 mg Take 10 mg Take 10 mg Practic as needed as needed as needed e by oral by oral by oral route in route in route in the the the morning. morning. morning. amitriptyli amitriptyli No [address] [facility] ne 50 mg ne 50 mg ine 50 mg Fa daniel tablet Take tablet Take tablet Practic 1 tablet 1 tablet Take 1 e every day every day tablet by oral by oral every day route. route. by oral route. aripiprazol aripiprazol No aripiprazo [facility] e 2 mg e 2 mg le 2 mg Family tablet Take tablet Take tablet Practic 1 tablet 1 tablet Take 1 e every day every day tablet by oral by oral every day route. route. by oral route. Immunizations Ordered Immunization Filled Immunization Date Status Commen ts Source Name Name COVID-19, mRNA, COVID-19, mRNA, 2020-04-16 Completed [facility] Family LNP-S, PF, 30 LNP-S, PF, 30 00:00:00 Practice mcg/0.3 mL dose mcg/0.3 mL dose Vital Signs Vital Name Observation Time Observation Value Comments Source Height 2020-08-09 00:00:00 64 [in_i] [facility] BMI (Body Mass 2020-08-09 00:00:00 30.9 kg/m2 [facility] [place] Family Index) Practice Body Weight 2020-08-09 00:00:00 180 [lb_av] [facility] BP Diastolic 2020-06-03 00:00:00 72 mm[Hg] [facility] Practice Height 2020-06-03 00:00:00 64 [in_i] [facility] Practice BMI (Body Mass 2020-06-03 00:00:00 30.6 kg/m2 [facility] [place] Family Index) Practice BP Systolic 2020-06-03 00:00:00 114 mm[Hg] [facility] Body Weight 2020-06-03 00:00:00 178 [lb_av] [facility] BP Diastolic 2020-04-15 00:00:00 80 mm[Hg] [facility] Height 2020-04-15 00:00:00 64 [in_i] [facility] Practice BMI (Body Mass 2020-04-15 00:00:00 31.1 kg/m2 [facility] [place] Family Index) Practice BP Systolic 2020-04-15 00:00:00 132 mm[Hg] [facility] Body Weight 2020-04-15 00:00:00 181.4 [lb_av] [facility] Procedures This patient has no known procedures. Plan of Care Planned Activity Planned Date Details Comments Source Future Appointment 2020-11-09 00:00:00 Renny [facility] [address], [place] [address] Encounters Start End Encounter Admission Attending Care Care Encounter Source Date/Time Date/Time Type Type Clinicians Facility Department ID 2020-10-03 Inpatient JESU DhillonTO SURG [id number] [facility] 10:00:00 Dwight [id number] [facility] 2020-10-08 2020-10-08 Outpatient JESU DhillonTO DAYS [id number] [facility] 12:53:00 12:53:00 Dwight [id number] [facility] 2020-10-04 2020-10-04 Inpatient JESU DhillonTO DAYS [id number] [facility] 10:00:00 09:15:00 Dwight [id number] [facility] 2020-09-30 2020-09-30 Outpatient JESU DhillonTO RADI [id number] [facility] 12:15:00 12:15:00 Dwight [id number] [facility] 2020-09-10 2020-09-10 Outpatient JESU HerreraPM RADI [id number] [facility] 14:33:00 14:33:00 Bela [id number] [facility] 2020-08-09 2020-08-09 Renny [facility] [place] - [id number] [facility] 00:00:00 00:00:[address] [facility] Family [facility] Practi c MD: [id number] JASMYN_Robert [address], [place] [address] , Ph. 2020-06-25 2020-06-25 [facility] 1.2.840.114 [id number] 07:46:00 23:59:00 Lara Whelan 350.1.13.10 [place] 4.2.7.2.686 [place] [id number] 2020-06-25 2020-06-25 Orders Doctor [facility] 1.2.840.114 [id number] 00:00:00 00:00:00 Only Unassigned, JUANITA 350.1.13.10 [place] [id number] [id number] 2020-06-03 2020-06-03 Renny [facility] [place] - [id number] [facility] 00:00:00 00:00:[address] [facility] MD: [id number] [address], [place] [address] , Ph. 2020-04-15 2020-04-15 Renny [facility] [place] - [id number] [facility] 00:00:00 00:00:[address] [facility] Pracrosemary jamison MD: [id number] [address], [place] [address] , Ph. 2019-11-30 2019-11-30 [facility] 1.2.840.114 [id number] 07:16:00 08:55:00 Encounter e, Nizar C Ivins 350.1.13.10 [place] 4.2.7.2.686 Surgical [id number] [place] [address] 2019-11-30 2019-11-30 Orders Doctor CIER[facility] 1.2.840.114 [id number] 00:00:00 00:00:00 Only Unassigned, JUANITA 350.1.13.10 [place] [address]686 [id number] 009 2019-11-28 2019-11-28 Laboratory Only, [facility] 1.2.840.114 7 [id number] 15:23:27 15:38:27 Only Test Ivins 350.1.13.10 [place] 4.2.7.2.686 [place] [id number] 2019-11-02 2019-11-02 [place] 2, [facility] [place] 1.2.840.114 [id number] 15:28:24 15:43:24 Visit Ivins 350.1.13.10 [place] 4.2.7.2.686 [place]io [id number] [address] 2019-11-02 2019-11-02 Orders Doctor [facility]ER[facility] 1.2.840.114 [id number] 00:00:00 00:00:00 Only Unassigned, JUANITA 350.1.13.10 [place] [address]686 [id number] [id number] Results Test Description Test Time Test Comments Results Result Comments Source GLUBED 2020-10-08 17:29:00 Test Item Value Reference Range Interpretation Comme nts GLUBED (test code = GLUBED) 126 mg/dL 60-125 H [id number] 13:40:00 Test Item Value Reference Range Interpretation Comments GLUBED (test code = GLUBED) 158 mg/dL 60-125 H COVID 19 Asymptomatic IH [id number] 13:13:00 Test Item Value Reference Range Interpretation Comments COVID 19 Asymptomatic IH AG (test NEGATIVE NEGATIVE code = COVNONPUIAG) - XR ARTHROGRAM SHLDR [id number] 16:03:00 [facility] 1970 Sex: F Patient Name: KAROLINE CACERES Unit No: [id number] EXAMS: CPT CODE: [id number] XR ARTHROGRAM SHLDR [id number] Right shoulder arthrogram FINDINGS: After informed consent was obtained a 22-gauge needle is inserted into the shoulder joint under fluoroscopic control using sterile technique. A total volume of 10 mL consisting of a combination of equal parts Isovue- 300 and gadolinium was instilled into the joint space followed by 3 cc of Marcaine. The patient tolerated the procedure well. Fluoroscopic Time: 13 seconds IMPRESSION: Technically successful right shoulder arthrogram at 1603 Reported and signed by: Luis Caceres M.D. CC: Dwight Holt MD; Bela Pennington DO Technologist: RT. Andrade(R) Transcribed D/ (2886) [facility]: KAROLINE CACERES [address] [facility] PHYS: Dwight Galan : 1970 AGE:50 SEX: F [place], [place] [address] LOC: Y.RAD PHONE #: [phone] EXAM DATE: 09/30/2020 STATUS: DEP CLI FAX #: [phone] RAD #: D/C DT PAGE 1 Signed Report Patient Name: KAROLINE CACERES Unit No: [id number] EXAMS: CPT CODE: [id number] [place] [address] <Continued> Orig Print D/T: S: 10/01/2020 (7223) [facility] NAME:KAROLINE CACERES [address] PHYS: Dwight Galan : 1970 AGE: 50 SEX: F [place], [place] [address] LOC: MyRAD PHONE #: [phone] EXAM DATE: 09/30/2020 STATUS: DEP CLI FAX #: [phone] RAD #: D/C DT PAGE 2 Signed Report- MRI UP [facility] W/CONT [id number] 09:57:00 [facility] 1970 Sex: F Patient Name: KAROLINE CACERES Unit No: [id number] EXAMS: CPT CODE: [id number] MRI UP [facility] W/CONT [id number] TECHNIQUE: Multiplanar multisequence MR images of the right shoulder were obtained following intra-articular administration of gadolinium contrast (see separately dictated procedure note for details). Images were then viewed on the PACS workstation in the axial, coronal and sagittal planes. COMPARISON: MR dated 01/31/2020 FINDINGS: Acromioclavicular joint: AC joint degenerative changes are again noted with fragmentation of the distal acromion. Rotator cuff: Recent postoperative changes ofsupraspinatus tendon repair demonstrated. There is persistent supraspinatus tendinosis visualized with a focal defect in the mid to posterior tendon measuring 2 to 3 mm, likely full-thickness. The defect is focal, located approximately 15 mm from the tendon insertion. No significant tendon retraction is present. No rotator cuff muscle atrophy. Long head biceps tendon: Postoperative changes of biceps tenodesis are noted without evidence of complication. Labrum: Blunting of the superior labrum is likely postoperative. No new labral tear is visualized. Cartilage/ bone: No full thickness chondral defect. No acute fracture. No suspicious osseous lesion. IMPRESSION: 1. Intervalpostoperative changes of supraspinatus tendon repair with a focal defect of the supraspinatus tendon, which may be postoperative. No large retracted tear is visualized. 2. Biceps tenodesis Without evidence of complication. at 0957 Reported and signed by: Luis Caceres M.D. CC: Dwight Holt MD; Bela Pennington DO Technologist: Leticia Holt, RT(R) Transcribed D/ (0957) [facility] NAME: KAROLINE CACERES [address] [facility] PHYS: Dwight Galan : 1970 AGE: 50 SEX: F [place] [address] LOC: Y.RAD PHONE #: [phone] EXAM DATE: 09/30/2020 STATUS: DEP CLI FAX #: [phone] RAD #: D/C DT PAGE 1 Signed Report Patient Name: KAROLINE CACERES Unit No: [id number] EXAMS: CPT CODE: [id number] [place] JNT W/[place] [id number] <Continued> Orig Print D/T: S: 10/01/2020 (1001) [facility] NAME: KAROLINE CACERES [address] [facility] PHYS: Dwight Galan : 1970 AGE: 50 SEX: F [place] [address] LOC: Y.RAD PHONE #: [phone] EXAM DATE: 09/30/2020 STATUS: DEP CLI FAX #: [phone] RAD #: D/C DT PAGE 2 Signed Report- XR HAND 2 V [id number] 15:16:00 [facility] : 1970 Sex: F Name: KAROLINE CACERES [facility] : 1970 Age/S: 50 / F [address] Unit #: [id number] Loc: [place] [address] Phys: Bela Pennington DO Acct: [id number] Dis Date: Status: REG CLI PHONE #: [phone] Exam Date: 09/10/2020 1455 FAX #: Reason:RIGHT HAND PAIN EXAMS: CPT: [id number] XR HAND 2 [place] [address] Fluoro Time: DAP (Gy m2): Air Kerma (mGy): EXAM: - XR HAND 2 V RT HISTORY: RIGHT HAND PAIN Location code:C3 COMPARISON: None available attime of interpretation FINDINGS: AP and lateral view of the right hand is provided. There is no acute fracture or malalignment. Mild degenerative change about the 5th DIP joint is present. The osseous structures are intact. IMPRESSION:No acute osseous abnormality. Degenerative change about the 5th DIP joint is present. at 1516 Reported and signed by: Mat Hassan MD CC: Bela Pennington DO PAGE 1 Signed Report Name: KAROLINE CACERES [facility] : 1970 Age/S: 50 / F [address] Unit #: [id number] Loc: [place] [address] Phys: Bela Pennington DO Acct: [id number] Dis Date: Status: REG CLI PHONE #: [phone] Exam Date: 09/10/2020 1455 FAX#: Reason: RIGHT HAND PAIN EXAMS: CPT: [id number] XR HAND 2 V RT [address] Fluoro Time: DAP (Gy m2): Air Kerma (mGy): <Continued> Technologist: Oh Mendez RT(R)(CT) Trnscb Date/Time: 09/10/2020 (289) [email or web address] Orig Print D/T: S: 09/10/2020 (0784) PAGE 2 Signed [id number] 09:37:00 Test Item Value Reference Range Interpretation Comments GLUBED (test code = GLUBED) 217 mg/dL 60-125 H [id number] 07:04:00 Test Item Value Reference Range Interpretation Comments GLUBED (test code = GLUBED) 112 mg/dL 60-125 N COVID 19 Asymptomatic IH [id number] 19:00:00 Test Item Value Reference Range Interpretation Comments COVID 19 Asymptomatic IH AG (test NEGATIVE NEGATIVE code = COVNONPUIAG) - MRI UP JNT W/CONT [id number] 15:10:00 [facility] 1970 Sex: F Patient Name: KAROLINE CACERES Unit No: [id number] EXAMS: CPT CODE: [id number] MRI UP JNT W/CONT [id number] EXAM: MRI ARTHROGRAM RIGHT SHOULDER DIAGNOSIS: 1. Patient status post supraspinatus tendon repair. The anterior third of the distal supraspinous tendon is abnormally increased in signal with partial-thickness interstitial tears. Large amount of contrast in the subacromial and subdeltoid bursa suggest a recurrent nonretracted tear supraspinatus tendon tear. No muscle belly atrophy. 2. There is a partial-thickness longitudinally oriented tear distal subscapularis tendon. 3. Biceps tenodesis. 4. There the glenoid labrum is diffusely attenuated compatible labral with associated minimally displaced labral tears. INDICATION: Right shoulder pain TECHNIQUE: Multiplanar, multisequence MRI is obtained of the right shoulder post arthrography. COMPARISON: None DISCUSSION: Osseous acromion outlet: The acromion is shallow type II, with mild lateral downsloping. No AC joint arthrosis is noted. Rotator cuff: Supraspinatus and subscapularis tendinopathy as described. The infraspinatus and teres minor tendons are intact. Biceps tendon and anchor: Biceps tenodesis. Labral and capsular structures: Labral abnormalities as described. Osseous structures: No evidence of fracture or avascular necrosis. RIGHT SHOULDER ARTHROGRAM WITH INTRA-ARTICULAR MARCAINE INJECTION COMMENT: After informed consent was obtained a 25-gauge needle is inserted into the right shoulder joint under fluoroscopic control using sterile technique. A total volume of 15 mL consisting of a combination of equal parts Isovue-300 and gadolinium is instilled into the joint space. This is followed by intra-articular injection of 4 mL of Marcaine. The patient tolerated the procedure well. 0.5 minutes of fluoroscopy time was used on this exam. Post arthrographic films show there is extravasation of contrast into [facility] NAME: KAROLINE CACERES [address] [facility] PHYS: Dwight Galan : 1970 AGE: 49 SEX: F [place], [place] [address] LOC: Y.RAD PHONE #: [phone] EXAMDATE: 01/31/2020 STATUS: REG CLI FAX #: [phone] RAD #: D/C DT PAGE 1 Signed Report (CONTINUED) Patient Name: KAROLINE CACERES Unit No: [id number] EXAMS: CPT CODE: [id number] [place] JNT W/[place] [id number] <Continued> the subacromial and subdeltoid bursa. at 1510 Reported and signed by: Lydia Valencia MD CC: Dwight Holt MD Technologist: KAROLINE OLIVARES RT(R) Transcribed D/ (7443) Morgan.GVG [facility] NAME: KAROLINE CACERES [address] [facility] PHYS: Dwight Galan : 1970 AGE: 49 SEX: F [place] [address] LOC: Y.RAD PHONE #: [phone] EXAM DATE: 01/31/2020 STATUS: REG CLI FAX #: [phone] RAD #: D/C DT PAGE 2 Signed Report Patient Name: KAROLINE CACERES Unit No: [id number] EXAMS: CPT CODE: [id number] [place] JNT W/[place] [address] <Continued> Orig Print D/T: S: 01/31/2020 (6745) [facility] NAME: KAROLINE CACERES [address] [facility] PHYS: Dwight Galan [place] : 1970 AGE: 49 SEX: F [place] [address] LOC: Y.RAD PHONE #: [phone] EXAM DATE: 01/31/2020 STATUS: REG CLI FAX #: [phone] RAD #: D/C DT PAGE 3 Signed Report- XR ARTHROGRAM SHLDR [id number] 15:10:00 [facility] 1970 Sex: F Patient Name: KAROLINE CACERES Unit No: [id number] EXAMS: CPT CODE: [id number] XR ARTHROGRAM SHLDR [id number] EXAM: MRI ARTHROGRAM RIGHT SHOULDER DIAGNOSIS: 1. Patient status post supraspinatus tendon repair. The anterior third of the distal supraspinous tendon is abnormally increased in signal with partial-thickness interstitial tears. Large amount of contrast in the subacromial and subdeltoid bursa suggest a recurrent nonretracted tear supraspinatus tendon tear. No muscle belly atrophy. 2. There is a partial-thickness longitudinally oriented tear distal subscapularis tendon. 3. Biceps tenodesis. 4. There the glenoid labrum is diffusely attenuated compatible labral with associated minimally displaced labral tears. INDICATION: Right shoulder pain TECHNIQUE: Multiplanar, multisequence MRI is obtained of the right shoulder post arthrography. COMPARISON: None DISCUSSION: Osseous acromion outlet: The acromion is shallow type II, with mild lateral downsloping. No AC joint arthrosis is noted. Rotator cuff: Supraspinatus and subscapularis tendinopathy as described. The infraspinatus and teres minor tendons are intact. Biceps tendon and anchor: Biceps tenodesis. Labral and capsular structures: Labral abnormalities as described. Osseous structures: No evidence of fracture or avascular necrosis. RIGHT SHOULDER ARTHROGRAM WITH INTRA-ARTICULAR MARCAINE INJECTION COMMENT: After informed consent was obtained a 25-gauge needle is inserted into the right shoulder joint under fluoroscopic control using sterile technique. A total volume of 15 mL consisting of a combination of equal parts Isovue-300 and gadolinium is instilled into the joint space. This is followed by intra-articular injection of 4 mL of Marcaine. The patient tolerated the procedure well. 0.5 minutes of fluoroscopy time was used on this exam. Post arthrographic films show there is extravasation of contrast into [facility] NAME: KAROLINE CACERES [address] [facility] PHYS: Dwight Galan : 1970 AGE: 49 SEX: F [place], [place] [address] LOC: Y.RAD PHONE #: [phone] EXAMDATE: 01/31/2020 STATUS: REG CLI FAX #: [phone] RAD #: D/C DT PAGE 1 Signed Report (CONTINUED) Patient Name: KAROLINE CACERES Unit No: [id number] EXAMS: CPT CODE: [id number] [place] [address] <Continued> the subacromial and subdeltoid bursa. at 1510 Reported and signed by: Lydia Valencia MD CC: Dwight Holt MD Technologist: Alysa Sy, RT.(R) Transcribed D/ (1509) [email or web address] [facility] NAME: KAROLINE CACERES [address] [facility] PHYS: Dwight Galan Mira : 1970 AGE: 49 SEX: F [place] [address] LOC: MyRAD PHONE #: [phone] EXAM DATE: 01/31/2020 STATUS: REG CLI FAX #: [phone] RAD #: D/C DT PAGE 2 Signed Report Patient Name: KAROLINE CACERES Unit No: [id number] EXAMS: CPT CODE: [id number] [place] [address] <Continued> Orig Print D/T: S: 01/31/2020 (072) [facility] NAME: KAROLINE CACERES [address] [facility] PHYS: Dwight Galan Mira : 1970 AGE: 49 SEX: F [place] [address] LOC: Y.RAD PHONE #: [phone] EXAM DATE: 01/31/2020 STATUS: REG CLI FAX #: [phone] RAD #: D/C DT PAGE 3 Signed ReportGLUBED 2018-10-25 09:52:00 Test Item Value Reference Range Interpretation Comments GLUBED (test code = GLUBED) 171 mg/dL 60-125 H [id number] 09:52:00 Test Item Value Reference Range Interpretation Comments GLUBED (test code = GLUBED) 94 mg/dL 60-125 N [id number] 08:35:00 Test Item Value Reference Range Interpretation Comments GLUBED (test code = GLUBED) 107 mg/dL 60-125 N [id number] 07:50:00 Test Item Value Reference Range Interpretation Comments GLUBED (test code = GLUBED) 116 mg/dL 60-125 N BASIC METABOLIC [id number] 17:41:00 Test Item Value Reference Range Interpretation [...] RATE (test code = GFR) mL/mi n/1.73 [id number] Range:Healthy Adults >90 mL/min/1.73 m2 For Chronic Kidney Disease: St age II Mild Decrease in GFR 60-90 St age III Moderate Decrease in GFR 30-59 Stage IV Severe Decre ase in GFR 15- 29 Stage V Kidney Failure <15 CREATININE (test code 0.47 mg/dL 0.55-1.30 L = CREAT) CALCIUM (test code = 9.0 mg/dL 8.2-10.1 N CA) HGB [id number] 17:16:00 Test Item Value Reference Range Interpretation Comments HEMOGLOBIN (test code = HGB) 13.3 g/dL 12-16 N HEMATOCRIT (test code = HCT) 39.6 % 37-47 N
[2020-10-09] MEDS ORDERED: PROMETHAZINE INJ 25 MG/ML AMP ONE (02:26)
[2020-10-09] MEDS ORDERED: NA CHLORIDE 0.9% 1,000 ML ONE (02:27)
[2020-10-09] MEDS ORDERED: ALBUTEROL 2.5 MG/3 ML NEB SOL ONE (02:27)
[2020-10-09] MEDS ORDERED: IPRATROPIUM BROM 0.5MG/2.5ML ONE (02:27)
[2020-10-09] MEDS ORDERED: FAMOTIDINE 20 MG/2 ML VIAL IV ONE (02:27)
[2020-10-09] MEDS ORDERED: FENTANYL CITR 100 MCG/2 ML ONE (02:28)
[2020-10-09 02:53] LABS: Protime INR 0.91
[2020-10-09 03:07] LABS: Absolute Lymphocytes (CBC) 0.7 K/uL (0.7-4.9); Basophils % 0.5 % (0-1.3); Hematocrit 35.9 % (36.0-45.0); Lymphocytes % 8.8 % (15.3-44.8); MPV 7.2 fL (7.6-11.3); RBC Red Blood Cell Count 4.05 M/uL (3.86-4.86)
[2020-10-09 03:23] LABS: ALT/SGPT 52 U/L (12-78); AST/SGOT 56 U/L (15-37); Albumin 3.3 g/dL (3.4-5.0); Alkaline Phosphatase 122 U/L (45-117); BUN Blood Urea Nitrogen 13 mg/dL (7-18); Bicarbonate 27 mmol/L (21-32); Bilirubin Direct < 0.1 mg/dL (0-0.2); Bilirubin Total 0.1 mg/dL (0.2-1.0); Glucose Level 241 mg/dL (74-106); Magnesium 1.9 mg/dL (1.8-2.4); NT PRO-BNP 148 pg/mL (<125); Potassium 4.4 mmol/L (3.5-5.1); Protein, Total 7.1 g/dL (6.4-8.2); Sodium Level 138 mmol/L (136-145); Troponin (Emerg Dept Use Only) < 0.02 ng/mL (0.0-0.045)
--- NOTE | 2020-10-09 04:15 | ER ---
Nurse's Notes [facility] Name: Marisol Hull Age: 50 yrs Sex: Female : 1970 Arrival Date: 10/09/2020 Time: 01:02 Bed 9 Private MD: Diagnosis: Atelectasis Presentation: 10/09 01:03 Chief complaint: EMS states: they were toned out for report of pt with SOB and low O2 bb after surgery to right rotator cuff yesterday. Coronavirus screen: shortness of breath. Ebola Screen: No symptoms or risks identified at this time. Initial Sepsis Screen: Does the patient meet any 2 criteria? No. Patient's initial sepsis screen is negative. Does the patient have a suspected source of infection? No. Patient's initial sepsis screen is negative. Risk Assessment: Do you want to hurt yourself or someone else? Patient reports no desire to harm self or others. Onset of symptoms was October 08, 2020. 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 - Social history:: Smoking status: Patient/guardian denies using tobacco, the patient reports quitting approximately 20 years ago. Screenin:24 Abuse screen: Denies threats or abuse. Denies injuries from another. Nutritional bs2 screening: No deficits noted. Tuberculosis screening: No symptoms or risk factors identified. Fall Risk Secondary diagnosis (15 points) pt had shoulder surgery yesterday, one arm immobilized . Assessment: 03:24 General: Appears in no apparent distress. obese, well groomed, well developed, well bs2 nourished, Behavior is cooperative, appropriate for age, anxious. Pain: Complains of pain in chest Pain currently is 8 out of 10 on a pain scale. Neuro: No deficits noted. Cardiovascular: No deficits noted. Respiratory: No deficits noted. Reports shortness of breath at rest cough that is non-productive, pain with cough. GI: No signs and/or symptoms were reported involving the gastrointestinal system. : No signs and/or symptoms were reported regarding the genitourinary system. EENT: No signs and/or symptoms were reported regarding the EENT system. Derm: No signs and/or symptoms reported regarding the dermatologic system. Musculoskeletal: No signs and/or symptoms reported regarding the musculoskeletal system. Vital Signs: 01:03 BP 153 / 69; Pulse 85; Resp 16 S; Temp 98.3(O); Pulse Ox 94% on R/A; Weight 85.28 kg bb (R); Height 5 ft. 3 in. (160.02 cm) (R); Pain 0/10; 03:10 BP 180 / 79; Pulse 79; Resp 15; Temp 98.6; Pulse Ox 96% ; Pain 8/10; bs2 01:03 Body Mass Index 33.30 (85.28 kg, 160.02 cm) bb ED Course: 01:02 Patient arrived in ED. mw2 01:03 Geovani Vera PA is PHCP. cp 01:03 Oscar Crocker MD is Attending Physician. cp 01:06 Triage completed. bb 01:06 Arm band placed on Patient placed in an exam room, on a stretcher, on pulse oximetry. bb 01:53 Genevieve Wagoner, RN is Primary Nurse. bs2 01:59 XRAY Chest (1 view) In Process Unspecified. EDMS 02:40 Inserted saline lock: 20 gauge in left antecubital area, using aseptic technique. Blood oe collected. 02:53 CT Chest For PE Angio In Process Unspecified. EDMS 03:23 Troponin (emerg Dept Use Only) Sent. bs2 03:23 NT PRO-BNP Sent. bs2 03:23 Magnesium Sent. bs2 03:23 LFT's Sent. bs2 03:23 CBC with Diff Sent. bs2 03:23 Basic Metabolic Panel Sent. bs2 03:23 Basic Metabolic Panel Sent. bs2 03:23 CREATININE WHOLE BLOOD Sent. bs2 03:23 Manual Differential Sent. bs2 03:24 Patient has correct armband on for positive identification. Bed in low position. Call bs2 light in reach. Side rails up X2. Pulse ox on. Door closed. Noise minimized. Visitors limited. Warm blanket given. 04:14 Bayron Benton MD is Referral Physician. 7 04:22 INCENTIVE SPIROMETRY Sent. bs2 04:59 IV discontinued, intact, bleeding controlled, No redness/swelling at site. bs2 04:59 No provider procedures requiring assistance completed. bs2 Administered Medications: 01:52 CANCELLED (Physician Discretion): Zofran (Ondansetron) 4 mg PO once bb 03:21 Drug: fentaNYL (PF) 25 mcg Route: IVP; Site: left antecubital; bs2 04:21 Follow up: Response: No adverse reaction bs2 03:22 Drug: Phenergan (promethazine) 12.5 mg Route: IVP; Site: left antecubital; bs2 04:22 Follow up: Response: No adverse reaction bs2 03:22 Drug: Pepcid (famotidine) 20 mg Route: IVP; Site: left antecubital; bs2 04:22 Follow up: Response: No adverse reaction bs2 03:22 Drug: NS 0.9% 500 ml Route: IV; Rate: 500 ml/hr; Site: left antecubital; bs2 05:01 Follow up: IV Status: Completed infusion bs2 03:22 Drug: Albuterol - atroVENT (ipratropium) (3:1) (2.5 mg - 0.5 mg) 3 ml Route: Nebulizer; bs2 04:21 Follow up: Response: No adverse reaction bs2 04:21 Not Given (pt discharged ): NS 0.9% 500 ml IV at 125 ml/hr continuous bs2 Outcome: 03:30 Discharged to home ambulatory, with family. bs2 03:30 Condition: improved 03:30 Discharge instructions given to patient, family, Instructed on discharge instructions, follow up and referral plans. medication usage, Demonstrated understanding of instructions, follow-up care, medications, Prescriptions given X 2. 04:14 Discharge ordered by . sandra 05:00 Patient left the ED. bs2 Signatures: Dispatcher [employer] EDMS Maryana Blackman RN RN Geovani Ridley PA PA cp Espinosa, Orlando oe [place], MyKena mw2 Oscar Crocker MD MD mh7 Smith, Bridget, RN RN bs2 Corrections: (The following items were deleted from the chart) 01:08 01:06 PMHx: Diabetes - IDDM; bb bb 01:08 01:06 PMHx: sleep disorder; bb bb 01:52 01:06 Home Meds: Zofran Oral; bb bb
--- NOTE | 2020-10-09 04:16 | EDPHYS ---
Physician Documentation [facility] Name: Marisol Hull Age: 50 yrs Sex: Female : 1970 Arrival Date: 10/09/2020 Time: 01:02 Bed 9 Private MD: ED Physician Oscar Crocker HPI: 10/09 01:15 This 50 yrs old Female presents to ER via EMS with complaints of Shortness of cp Breath. 01:15 The patient has shortness of breath at rest. Onset: The symptoms/episode began/occurred cp last night. 01:15 Duration: The symptoms are continuous, and are unchanged since they started. cp 01:15 Associated signs and symptoms: Pertinent positives: chest pain, nausea, Pertinent cp negatives: productive cough, fever, vomiting. Patient reports recent discharge from [facility] after having right rotator cuff surgery performed yesterday. Patient denies any complications surgery. Surgery was performed by Dr. Gigi Holt. Patient reports she noticed her oxygen sats were 92% today, so she called the office of Dr. Holt and was told to seek immediate attention and proceed to an emergency department if her oxygen sats drop below 93%. Patient also complains of chest pain.. 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 - Social history:: Smoking status: Patient/guardian denies using tobacco, the patient reports quitting approximately 20 years ago. ROS: 01:20 Constitutional: Negative for body aches, chills, fever, poor PO intake. cp 01:20 Eyes: Negative for injury, pain, redness, and discharge. cp 01:20 ENT: Negative for ear pain, sore throat, difficulty swallowing, difficulty handling secretions. 01:20 Cardiovascular: Positive for chest pain, Negative for edema, palpitations. 01:20 Respiratory: Positive for shortness of breath, at rest. Negative for cough, wheezing. 01:20 Abdomen/GI: Positive for abdominal pain, nausea, Negative for vomiting, diarrhea, constipation. 01:20 Back: Negative for radiated pain. 01:20 Neuro: Negative for altered mental status, dizziness, headache, syncope, weakness. 01:20 All other systems are negative. Exam: 01:20 Constitutional: The patient appears in no acute distress, alert, awake, cp non-diaphoretic, non-toxic, well developed, well nourished, obese. 01:20 Head/Face: Normocephalic, atraumatic. cp 01:20 Eyes: Periorbital structures: appear normal, Conjunctiva: normal, no exudate, no injection, Sclera: no appreciated abnormality, Lids and lashes: appear normal, bilaterally. 01:20 ENT: External ear(s): are unremarkable, Nose: is normal, Mouth: Lips: moist, Oral mucosa: pink and intact, moist, Posterior pharynx: Airway: no evidence of obstruction, patent. 01:20 Neck: ROM/movement: is normal, is supple, without pain, no range of motions limitations. 01:20 Chest/axilla: Inspection: normal, Palpation: is normal, no crepitus, no tenderness. 01:20 Cardiovascular: Rate: normal, Rhythm: regular, Edema: is not appreciated, JVD: is not appreciated. 01:20 Respiratory: the patient does not display signs of respiratory distress, Respirations: normal, no use of accessory muscles, no retractions, labored breathing, is not present, Breath sounds: decreased breath sounds, that are mild, diffuse, stridor, is not appreciated. 01:20 Abdomen/GI: Inspection: abdomen appears normal, Bowel sounds: active, all quadrants, Palpation: soft, in all quadrants, mild abdominal tenderness, in all quadrants. 01:20 Back: pain, is absent, ROM is normal. 01:20 Skin: cellulitis, is not appreciated, no rash present. 01:20 Neuro: Orientation: to person, place \T\ time. Mentation: is normal. Vital Signs: 01:03 BP 153 / 69; Pulse 85; Resp 16 S; Temp 98.3(O); Pulse Ox 94% on R/A; Weight 85.28 kg bb (R); Height 5 ft. 3 in. (160.02 cm) (R); Pain 0/10; 03:10 BP 180 / 79; Pulse 79; Resp 15; Temp 98.6; Pulse Ox 96% ; Pain 8/10; bs2 01:03 Body Mass Index 33.30 (85.28 kg, 160.02 cm) bb MDM: 01:06 Patient medically screened. cp 01:30 Differential diagnosis: asthma, CHF exacerbation, Chronic Obstructive Pulmonary Disease cp pneumonia, Pneumothorax pulmonary edema, Pulmonary Embolism reactive airway disease, Unstable Angina. 03:00 Transition of care: After a detail discussion of the patient's case, care is cp transferred to Oscar Crocker MD. 10/09 01:14 Order name: Basic Metabolic Panel 10/09 01:14 Order name: CBC with Diff cp 10/09 01:14 Order name: LFT's; Complete Time: 04:06 cp 10/09 01:14 Order name: Magnesium; Complete Time: 04:06 cp 10/09 01:14 Order name: NT PRO-BNP; Complete Time: 04:06 cp 10/09 01:14 Order name: PT-INR; Complete Time: 04:06 cp 10/09 01:14 Order name: Troponin (emerg Dept Use Only); Complete Time: 04:06 cp 10/09 01:14 Order name: XRAY Chest (1 view) 10/09 01:15 Order name: Basic Metabolic Panel; Complete Time: 04:06 EDMS 10/09 01:36 Order name: CT Chest For PE Angio 10/09 03:04 Order name: CREATININE WHOLE BLOOD; Complete Time: 04:06 EDMS 10/09 03:04 Order name: CREATININE WHOLE BLOOD EDMS 10/09 03:09 Order name: Manual Differential EDMS 10/09 01:14 Order name: EKG; Complete Time: 01:15 cp 10/09 01:14 Order name: Cardiac monitoring; Complete Time: 03:23 cp 10/09 01:14 Order name: EKG - Nurse/Tech; Complete Time: 03:15 cp 10/09 01:14 Order name: IV Saline Lock; Complete Time: 03:15 cp 10/09 01:14 Order name: Labs collected and sent; Complete Time: 03:15 cp 10/09 01:14 Order name: O2 Sat Monitoring; Complete Time: 03:23 cp 10/09 04:17 Order name: INCENTIVE SPIROMETRY mh7 Administered Medications: 01:52 CANCELLED (Physician Discretion): Zofran (Ondansetron) 4 mg PO once bb 03:21 Drug: fentaNYL (PF) 25 mcg Route: IVP; Site: left antecubital; bs2 04:21 Follow up: Response: No adverse reaction bs2 03:22 Drug: Phenergan (promethazine) 12.5 mg Route: IVP; Site: left antecubital; bs2 04:22 Follow up: Response: No adverse reaction bs2 03:22 Drug: Pepcid (famotidine) 20 mg Route: IVP; Site: left antecubital; bs2 04:22 Follow up: Response: No adverse reaction bs2 03:22 Drug: NS 0.9% 500 ml Route: IV; Rate: 500 ml/hr; Site: left antecubital; bs2 05:01 Follow up: IV Status: Completed infusion bs2 03:22 Drug: Albuterol - atroVENT (ipratropium) (3:1) (2.5 mg - 0.5 mg) 3 ml Route: Nebulizer; bs2 04:21 Follow up: Response: No adverse reaction bs2 04:21 Not Given (pt discharged ): NS 0.9% 500 ml IV at 125 ml/hr continuous bs2 Disposition: 07:10 Co-signature as Attending Physician, Oscar Crocker MD. [facility] Disposition Summary: 10/09/20 04:14 Discharge Ordered Location: Home [facility] Problem: new [facility] Symptoms: have improved [facility] Condition: Stable [facility] Diagnosis - Atelectasis [facility] Followup: [facility] - With: Private Physician - When: 1 - 2 days - Reason: Worsening of condition, Recheck today's complaints, Continuance of care, Re-evaluation by your physician Followup: [facility] - With: Bayron Benton MD - When: 1 - 2 days - Reason: Worsening of condition, Recheck today's complaints Discharge Instructions: - Discharge Summary Sheet [facility] - Atelectasis, Adult [facility] - How to Use an Incentive Spirometer [facility] Forms: - Medication Reconciliation Form [facility] - Thank You Letter [facility] - Antibiotic Education [facility] - Prescription Opioid Use [facility] Prescriptions: - albuterol sulfate 90 mcg/actuation Inhalation HFA aerosol inhaler - inhale 2 puff by INHALATION route every 6 hours As needed; 1 Inhaler; Refills: [facility] 0, Product Selection Permitted - levofloxacin 500 mg Oral Tablet - take 1 tablet by ORAL route once daily for 7 days; 7 tablet; Refills: 0, 7 Product Selection Permitted Signatures: Dispatcher [facility] Maryana Holland, RN RN bb Geovani Vera PA PA cp Oscar Crocker MD MD mh7 Genevieve Wagoner RN RN bs2 Corrections: (The following items were deleted from the chart) 01:06 PMHx: Diabetes - IDDM; [facility] 01:06 PMHx: sleep disorder; marcelino benson 01:52 01:14 Zofran (Ondansetron) 4 mg PO once ordered. caitlin benson 01:06 Home Meds: Zofran Oral; [facility] 02:38 01:15 CORONAVIRUS+MR.LAB.BRZ ordered. EDMS EDMS 04:23 01:14 Oxygen Per Protocol ordered. caitlin bs2
[2020-10-09 04:43] LABS: Blood Morphology Comment NOT SEEN (NOT SEEN); Platelet Estimate ADEQ
[2020-10-09 05:21] VITALS: BP 180/79; TEMP 98.6; O2SAT 96
--- NOTE | 2020-10-09 08:49 | RAD REPORT ---
EXAM DESCRIPTION: RAD - Chest Single View - 10/09/2020 1:59 am CLINICAL HISTORY: CHEST PAIN COMPARISON: November 2019 TECHNIQUE: AP portable chest image was obtained 10/09/2020 1:59 am . FINDINGS: Lung volumes are low accentuating lung parenchymal pattern. Right base atelectasis present . Heart and vasculature are normal. No pneumothorax is present. Small right pleural effusion suspecte d. No acute bony abnormality seen. No acute aortic findings suspected. IMPRESSION: Limited shallow inspiration film showing small right pleural effusion with lung base ate lectasis.
--- NOTE | 2020-10-09 11:04 | RAD REPORT ---
EXAM DESCRIPTION: CT - Chest For Pe Angio - 10/09/2020 6:26 am CLINICAL HISTORY: The patient is 50 years old and is Female; SOB TECHNIQUE: Axial computed tomographic angiography images of the chest with intravenous contrast. S agittal and coronal reformatted images were created and reviewed. This CT exam was performed using one or more of the following dose reduction techniques: automated exposure control, adjustment of t he mA and/or kV according to patient size, and/or use of iterative reconstruction technique. MIP re constructed images were created and reviewed. COMPARISON: No relevant prior studies available. FINDINGS: Pulmonary arteries: Unremarkable. No pulmonary embolism. Aorta: No acute findings. No thoracic aortic aneurysm. Lungs: Right basilar consolidation or atelectasis. Left basilar atelectasis. Pleural space: Small right pleural effusion. No pneumothorax. Heart: Unremarkable. No cardiomegaly. No significant pericardial effusion. No evidence of RV dysfunction. Bones/joints: No acute fracture. No dislocation. Soft tissues: Unremarkable. Lymph nodes: Unremarkable. No enlarged lymph nodes. IMPRESSION: 1. Small right pleural effusion. 2. Right basilar consolidation or atelectasis. 3. No evidence of pulmonary embolism. Electronically signed by: Cr Rowell MD 10/09/2020 3:23 AM CDT Due to temporary technical issues with the PACS/Fluency reporting system, reports are being signed by the in house radiologist without review as a courtesy to ensure prompt reporting. The interpreting r adiologist is fully responsible for the content of the report.
--- NOTE | 2020-10-09 15:38 | EKG ---
Test Date: 2020-10-09 Test Time: 02:56:59 Doctor Of Pharmacy: ROSEMARIE MEASUREMENT RESULTS: Intervals: Rate: 78 ID: [id number] QRSD: 76 QT: 368 QTc: 419 Burket: P: 47 ID: [id number] QRS: 39 T: 31 INTERPRETIVE STATEMENTS: Normal sinus rhythm Possible Anterior infarct, age undetermined Abnormal ECG Compared to ECG 12/16/2019 12:31:01 Myocardial infarct finding now present Sinus tachycardia no longer present Electronically Signed On 10-09-20 15:36:53 CDT by Manjit Brooks
== END 2020-10-09 05:00 | disposition home or self-care (01) ==
LOC: ER 00:25
DX: J98.11 Atelectasis (principal); Z88.5 Allergy status to narcotic agent; Z88.8 Allergy status to other drugs, medicaments and biological substances
CPT/HCPCS: 96361; 93005; 85025; 80048; 36415; 83735; 85610; 82565; 80076; 84484; 83880; 71275; 71045; 96375; 96374; 99284; Q9967; J2550; J3010; J7030